=== PATIENT | male | born 1970 | race Caucasian/White ===

== ENCOUNTER 2017-10-29 13:18 | Emergency (ER) | payer OTHER, SELFPAY ==
[2017-10-29] VITALS (7 sets, daily range): BP systolic 111–149; BP diastolic 81–98; PULSE 61–76; RESP 13–18; TEMP 36.6; O2SAT 94–99; BMI 33.7
--- NOTE | 2017-10-29 13:21 | RAD_ITS ---
STUDY: X-RAY - LEFT SHOULDER REASON FOR EXAM: Male, 47 years old. Fall on shoulder. TECHNIQUE: 2 view(s) of the shoulder. COMPARISON: None. FINDINGS: Is complete dislocation of the glenohumeral joint with anterior humeral head dislocation. Normal acromioclavicular joint. Normal acromion. Normal humeral head and visualized proximal humerus. The soft tissue structures are unremarkable. Normal visualized pulmonary apex. RAD/Shoulder min 2 Views IMPRESSION: Anterior shoulder dislocation with no evidence of definitive chip fracture. Electronically Signed: Abrahan Lott DO at 14:10 EDT , Service support ,
[2017-10-29] MEDS: Ondansetron 4 MG/2 ML Vial IV (13:32)
[2017-10-29] MEDS: Morphine 4 MG/ML Syringe IV (13:32)
--- NOTE | 2017-10-29 13:34 | ED.VIS.GEN ---
History of Present Illness Chief Complaint: Upper Extremity Injury Informant: Patient Onset: Today Context: Sudden Onset - Slipped on wet concrete while power washing, caught himself on outstretched left hand, sudden onset severe left shoulder pain. Quality: Throbbing/aching Location: Left shoulder Current Severity: Severe Maximum Severity: Severe Worsened by: Trying to move left upper extremity Relieved by: Remaining still Associated Symptoms: Tingling in all of left fingers Narrative: Right-hand dominant. History of rotator cuff surgery left shoulder. No prior dislocation. No other injury today. - Past Medical History (1) Allergic rhinitis Status: Chronic Past Medical History - Allergies and Home Meds Allergies/Adverse Reactions: Allergies No Known Allergies Allergy (Verified 10/29/17 13:26) Home Medications: Home Medications Medication Instructions Recorded Cetirizine HCl [Zyrtec] 10 mg PO DAILY 07/04/14 Multivitamins,Therapeutic 1 tablet PO DAILY 07/04/14 [Multivitamin] Oxycodone HCl/Acetaminophen 1 tab PO Q6H PRN PRN 3 Days #12 tab 10/29/17 [Percocet 5/325] Primary Care Physician: Geoff New MD [Primary Care Provider] - Surgical History: rotator cuff repair Lives: Spouse/ Significant Other Smoking Status: Never smoker Review of Systems All systems negative except as indicated Musculoskeletal: Reports: Extremity Pain Neurological: Reports: Parasthesia Physical Exam Vital Signs/Narrative: Vital Signs Temp Pulse Resp BP Pulse Ox 10/29/17 13:19 97.9 F 68 18 141/97 H 98 Inital Vital Signs reviewed: Yes General: Well nourished, Well developed Head: Normocephalic, Atraumatic Eyes: Perrl, EOMI ENT: Moist mucous membranes, No rhinorrhea Neck: Supple, Nontender Cardiovascular: - - Normal 2+/4 bilateral radial pulses Extremities: Tenderness - With deformity consistent with anterior shoulder dislocation left subacromial. No AC joint tenderness or scapular tenderness. Very limited range of motion left upper extremity. No tenderness at humerus, elbow, forearm, wrist, hand. Skin: Normal color, No rash, - - Left upper extremity skin intact. Minor abrasion left lower leg. Neurological: Alert, Oriented x3, Cranial nerves II-XII grossly intact, Normal Strength, Normal Gait. Negative for: Normal Sensation - Mild diffuse left hand decreased sensation. Decreased subjective sensation left axillary nerve distribution. Psychological: Normal affect Diagnostic/Tx/Re-eval Clinical Impression(s) from Imaging Studies Shoulder X-Ray 10/29/17 13:21 IMPRESSION: Anterior shoulder dislocation with no evidence of definitive chip fracture. Electronically Signed: Abrahan Lott at 14:10 EDT , Service support , - Medical Decision Making Patient was initially given morphine for pain, but it does not help significantly and he was in extraordinary pain. He had been n.p.o. for approximately 5.5-6 hours. He consented to procedural sedation with close reduction, which was performed uneventfully, see procedure note. Upon waking up, he said his shoulder felt much better and the fullness in the subacromial area was resolved. Postreduction x-rays confirmed good reduction with no signs of any bony acute abnormality. He is neurovascularly intact distally after reduction. His paresthesias in axillary nerve distribution are improved but still present. He is placed in a sling and swath. His orthopedic doctor is Dr. Bonilla Ch, with whom he will follow-up, in [place]. Procedures Procedure(s): Left anterior shoulder dislocation reduction--traction-countertraction technique used with success, confirmed by post reduction films. Procedural sedation --fentanyl 100 mcg pretreatment, followed by propofol just under 1 mg/kg, transient hypoxia for about 5 seconds, otherwise tolerated well and no complications. Recovered uneventfully and feels much better. ED Disposition - Plan for ED Patient: Disposition: Home or Assisted Living Chief Complaint: Upper Extremity Injury Diagnosis: Closed anterior dislocation of left shoulder Instructions: ED Dislocation Shoulder Redu Prescriptions: Oxycodone HCl/Acetaminophen [Percocet 5/325] 1 tab PO Q6H PRN PRN 3 Days #12 tab PRN Reason: Pain Referrals: Geoff New MD [Primary Care Provider] - Bonilla Ch MD [NON-STAFF] - (Within the next week-call for appointment)
--- NOTE | 2017-10-29 13:37 | ED.DCSUM_ITS ---
History of Present Illness Chief Complaint: Upper Extremity Injury Informant: Patient Onset: Today Context: Sudden Onset - Slipped on wet concrete while power washing, caught himself on outstretched left hand, sudden onset severe left shoulder pain. Quality: Throbbing/aching Location: Left shoulder Current Severity: Severe Maximum Severity: Severe Worsened by: Trying to move left upper extremity Relieved by: Remaining still Associated Symptoms: Tingling in all of left fingers Narrative: Right-hand dominant. History of rotator cuff surgery left shoulder. No prior dislocation. No other injury today. - Past Medical History (1) Allergic rhinitis Status: Chronic Past Medical History - Allergies and Home Meds Allergies/Adverse Reactions: Allergies No Known Allergies Allergy (Verified 10/29/17 13:26) Home Medications: Home Medications Medication Instructions Recorded Cetirizine HCl [Zyrtec] 10 mg PO DAILY 07/04/14 Multivitamins,Therapeutic 1 tablet PO DAILY 07/04/14 [Multivitamin] Oxycodone HCl/Acetaminophen 1 tab PO Q6H PRN PRN 3 Days #12 tab 10/29/17 [Percocet 5/325] Primary Care Physician: Geoff New MD [Primary Care Provider] - Surgical History: rotator cuff repair Lives: Spouse/ Significant Other Smoking Status: Never smoker Review of Systems All systems negative except as indicated Musculoskeletal: Reports: Extremity Pain Neurological: Reports: Parasthesia Physical Exam Vital Signs/Narrative: Vital Signs Temp Pulse Resp BP Pulse Ox 10/29/17 13:19 97.9 F 68 18 141/97 H 98 Inital Vital Signs reviewed: Yes General: Well nourished, Well developed Head: Normocephalic, Atraumatic Eyes: Perrl, EOMI ENT: Moist mucous membranes, No rhinorrhea Neck: Supple, Nontender Cardiovascular: - - Normal 2+/4 bilateral radial pulses Extremities: Tenderness - With deformity consistent with anterior shoulder dislocation left subacromial. No AC joint tenderness or scapular tenderness. Very limited range of motion left upper extremity. No tenderness at humerus, elbow, forearm, wrist, hand. Skin: Normal color, No rash, - - Left upper extremity skin intact. Minor abrasion left lower leg. Neurological: Alert, Oriented x3, Cranial nerves II-XII grossly intact, Normal Strength, Normal Gait. Negative for: Normal Sensation - Mild diffuse left hand decreased sensation. Decreased subjective sensation left axillary nerve distribution. Psychological: Normal affect Diagnostic/Tx/Re-eval Clinical Impression(s) from Imaging Studies Shoulder X-Ray 10/29/17 13:21 IMPRESSION: Anterior shoulder dislocation with no evidence of definitive chip fracture. Electronically Signed: Abrahan Lott at 14:10 EDT , Service support , - Medical Decision Making Patient was initially given morphine for pain, but it does not help significantly and he was in extraordinary pain. He had been n.p.o. for approximately 5.5-6 hours. He consented to procedural sedation with close reduction, which was performed uneventfully, see procedure note. Upon waking up , he said his shoulder felt much better and the fullness in the subacromial area was resolved. Postreduction x-rays confirmed good reduction with no signs of any bony acute abnormality. He is neurovascularly intact distally after reduction. His paresthesias in axillary nerve distribution are improved but still present. He is placed in a sling and swath. His orthopedic doctor is Dr. Bonilla Ch, with whom he will follow-up, in [place]. Procedures Procedure(s): Left anterior shoulder dislocation reduction--traction- countertraction technique used with success, confirmed by post reduction films. Procedural sedation --fentanyl 100 mcg pretreatment, followed by propofol just under 1 mg/kg, transient hypoxia for about 5 seconds, otherwise tolerated well and no complications. Recovered uneventfully and feels much better. ED Disposition - Plan for ED Patient: Disposition: Home or Assisted Living Chief Complaint: Upper Extremity Injury Diagnosis: Closed anterior dislocation of left shoulder Instructions: ED Dislocation Shoulder Redu Prescriptions: Oxycodone HCl/Acetaminophen [Percocet 5/325] 1 tab PO Q6H PRN PRN 3 Days #12 tab PRN Reason: Pain Referrals: Geoff New MD [Primary Care Provider] - Bonilla Ch MD [NON-STAFF] - (Within the next week-call for appointment)
[2017-10-29] MEDS: fentaNYL 100 MCG/2 ML Ampul IV (14:36)
[2017-10-29] MEDS: Propofol 200 MG/20 ML Vial 100 MG IV BOLUS (14:48)
--- NOTE | 2017-10-29 14:53 | RAD_ITS ---
STUDY: X-RAY - LEFT SHOULDER REASON FOR EXAM: Male, 47 years old. Post reduction. TECHNIQUE: 2 view(s) of the shoulder. COMPARISON: None. FINDINGS: There is moderate degenerative arthrosis of the glenohumeral articulation. There is degenerative arthrosis of the acromioclavicular joint without inferior osseous spur formation. Normal acromion. There is an enthesopathic erosion of the humeral head. The soft tissue structures are unremarkable. Normal visualized pulmonary apex. RAD/Shoulder min 2 Views IMPRESSION: Successful post reduction with severe degenerative changes of the humeral head. Electronically Signed: Abrahan Lott DO at 15:19 EDT , Service support ,
== END 2017-10-29 15:40 | disposition home or self-care (01) ==
PROVIDERS: Emergency Provider Emergency Medicine; Family Provider Family Medicine; PCP Family Medicine
DX: S43.005A Unspecified dislocation of left shoulder joint, initial encounter (principal); W01.0XXA Fall on same level from slipping, tripping and stumbling without subsequent striking against object, initial encounter; Y93.H9 Activity, other involving exterior property and land maintenance, building and construction; Y92.009 Unspecified place in unspecified non-institutional (private) residence as the place of occurrence of the external cause; Y99.9 Unspecified external cause status; J30.9 Allergic rhinitis, unspecified
CPT/HCPCS: 23650; 73030; 99283; J7030; J7040; A4216; J2405

== ENCOUNTER 2017-11-06 07:17 | Emergency (ER) | payer OTHER, SELFPAY ==
--- NOTE | 2017-11-06 07:17 | DT_ITS ---
This patient was seen during an EMR downtime November 06, 2017 - November 13, 2017. This patient may have a combination of paper and electronic documentation or all paper documentation. All documentation is viewable within the e-chart portion of [facility] for each patient visit.
--- NOTE | 2017-11-06 08:15 | RAD_ITS ---
STUDY: X-RAY - LEFT SHOULDER REASON FOR EXAM: Male, 47 years old. dislocation. TECHNIQUE: 3 view(s) of the shoulder. COMPARISON: None. FINDINGS: There is anterior dislocation. Normal visualized pulmonary apex. RAD/Shoulder min 2 Views IMPRESSION: Anterior dislocation. Electronically Signed: Anh Tyson MD at 12:50 EDT Tel , Service support ,
--- NOTE | 2017-11-06 08:55 | RAD_ITS ---
STUDY: X-RAY - LEFT SHOULDER REASON FOR EXAM: Male, 47 years old. POST REDUCTION LEFT SHOULDER TECHNIQUE: 2 view(s) of the shoulder. COMPARISON: November 06, 2017 FINDINGS: There has been interval reduction. RAD/Shoulder min 2 Views IMPRESSION: Interval reduction. Electronically Signed: nAh Tyson MD at 10:51 EDT Tel , Service support ,
--- NOTE | 2017-12-05 06:07 | ED.VISSUMM ---
- ER Visit Summary Date of Service: 12/05/17 Chief Complaint: Dislocated left shoulder History of Present Illness: The patient is a 47 M history of prior left shoulder surgery secondary to a rotator cuff repair. About 06 30 today patient dislocated his shoulder. Denies any significant trauma. No other injuries. Complaining of pain. Physical Examination: Middle-aged male vital signs are stable afebrile. HEENT exam normal. Neck nontender. Lungs clear to auscultation. Heart regular rhythm no murmur. Abdomen soft nontender. Extremities are unremarkable except left shoulder has obvious deformity consistent with a dislocation. Distally the left hand is neurovascular intact with a strong radial pulse. 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 Test Results: Left shoulder x-ray 2 views show an obvious shoulder dislocation. No fracture. Emergency Department Course and Treatment: Procedure note: Patient initially given IV Dilaudid for pain and Zofran to prevent nausea. Was consciously sedated with propofol. Initially 60 mg and a second dose of 40 mg for a total of 100 mg. Using traction countertraction the shoulder was easily reduced. He was placed in a sling and swath. Post reduction x-ray revealed good positioning. No fracture. Treatment Plan: Discharged home. Follow-up with orthopedic doctor. Disposition: Discharge Impression: Acute left shoulder dislocation. Conscious sedation by ER Manual left shoulder dislocation reduction by ER This dictation was done on 12/05/2017 and 06 10 AM. Patient was initially seen on 11/06/2017. The dictation was done after the fact due to this being the hospital downtime on initial evaluation. This note was generated with [employer] dictation software. It may contain incorrect words, spelling, and punctuation that were not noted in review of the chart prior to signing ED Disposition - Plan for ED Patient: Disposition: Home or Assisted Living Referrals: Geoff New MD [Primary Care Provider] -
--- NOTE | 2017-12-05 06:11 | ED.DCSUM_ITS ---
- ER Visit Summary Date of Service: 12/05/17 Chief Complaint: Dislocated left shoulder History of Present Illness: The patient is a 47 M history of prior left shoulder surgery secondary to a rotator cuff repair. About 06 30 today patient dislocated his shoulder. Denies any significant trauma. No other injuries. Complaining of pain. Physical Examination: Middle-aged male vital signs are stable afebrile. HEENT exam normal. Neck nontender. Lungs clear to auscultation. Heart regular rhythm no murmur. Abdomen soft nontender. Extremities are unremarkable except left shoulder has obvious deformity consistent with a dislocation. Distally the left hand is neurovascular intact with a strong radial pulse. 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 Test Results: Left shoulder x-ray 2 views show an obvious shoulder dislocation. No fracture. Emergency Department Course and Treatment: Procedure note: Patient initially given IV Dilaudid for pain and Zofran to prevent nausea. Was consciously sedated with propofol. Initially 60 mg and a second dose of 40 mg for a total of 100 mg. Using traction countertraction the shoulder was easily reduced. He was placed in a sling and swath. Post reduction x-ray revealed good positioning. No fracture. Treatment Plan: Discharged home. Follow-up with orthopedic doctor. Disposition: Discharge Impression: Acute left shoulder dislocation. Conscious sedation by ER Manual left shoulder dislocation reduction by ER This dictation was done on 12/05/2017 and 06 10 AM. Patient was initially seen on 11/06/2017. The dictation was done after the fact due to this being the hospital downtime on initial evaluation. This note was generated with [employer] dictation software. It may contain incorrect words, spelling, and punctuation that were not noted in review of the chart prior to signing ED Disposition - Plan for ED Patient: Disposition: Home or Assisted Living Referrals: Geoff New MD [Primary Care Provider] -
== END 2017-11-06 09:30 | disposition home or self-care (01) ==
LOC: ED 11-08 11:44
PROVIDERS: Emergency Provider Emergency Medicine; Family Provider Family Medicine; PCP Family Medicine
DX: S43.005A Unspecified dislocation of left shoulder joint, initial encounter (principal); X58.XXXA Exposure to other specified factors, initial encounter; Y93.89 Activity, other specified; Y92.9 Unspecified place or not applicable; Y99.9 Unspecified external cause status
CPT/HCPCS: 23650; 73030; 96374; 96375; 99143; 99285; J7030; A4216; J2405

== ENCOUNTER → 2017-12-01 10:24 | Outpatient (CLI) | payer OTHER, SELFPAY ==
--- NOTE | 2017-12-01 10:29 | MRI_ITS ---
STUDY: MRI LEFT SHOULDER REASON FOR EXAM: Male, 47 years old. Dislocation. Prior surgery. TECHNIQUE: Standardized fat and water weighted pulse sequences were obtained in all 3 orthogonal planes. COMPARISON: February 20, 2015. FINDINGS: There is postoperative change with tracks from hardware and susceptibility artifact of the posterior lateral humeral head and the proximal shaft of the humerus. Tendinosis of the supraspinatus with attrition. There is full-thickness tear of the distal supraspinatus tendon with retraction of 2.6 cm, series 5 image 05/24 through . There is infraspinatus tendinosis with tendon attrition, but without a demonstrated infraspinatus tendon tear. Normal subscapularis tendon. Normal teres minor tendon. There is moderate muscular atrophy of the supraspinatus muscle. There is moderate muscular atrophy of the infraspinatus muscle. Normal subscapularis muscle. Normal teres minor muscle. Normal glenohumeral articulation. There is a Hill-Sachs deformity of the posterior superior humeral head. Normal biceps labral complex. Nonvisualized long head of the biceps tendon consistent with previous tenodesis . There is labral degeneration with blunting of the hardy, but there is no demonstrated discrete labral tear. Normal capsulo- ligamentous complex. Normal rotator interval. There is mild osteoarthritis of the acromioclavicular articulation. There is a Type II morphology (curved), with a neutral orientation. There is no subacromial-subdeltoid bursal fluid. Normal visualized coracohumeral and coracoacromial ligaments. Normal quadrilateral space. Normal axillary space. Normal deltoid muscle. Normal trapezius muscle. MRI/Upper Ext Joint Only(Routine) IMPRESSION: Postoperative change. Rotator cuff tear of the supraspinatus tendon. Electronically Signed: Andrés Burns MD at 14:20 EDT , Service support ,
== END ==
PROVIDERS: Family Provider Family Medicine; PCP Family Medicine; Visit Provider Family Medicine
DX: S43.016A Anterior dislocation of unspecified humerus, initial encounter (principal)
CPT/HCPCS: 73221

== ENCOUNTER 2018-04-10 03:55 | Emergency (ER) | payer OTHER, SELFPAY ==
[2018-04-10 03:56] VITALS: BP 136/97; PULSE 62; RESP 24; TEMP 36.5; O2SAT 98; BMI 33.2
--- NOTE | 2018-04-10 04:01 | RAD_ITS ---
STUDY: X-RAY - LEFT SHOULDER REASON FOR EXAM: Male, 48 years old. Shoulder dislocation TECHNIQUE: 2 view(s) of the shoulder. COMPARISON: None. FINDINGS: There are mild degenerative changes of the acromioclavicular joint and the glenohumeral articulation. 2 microplates are seen projecting over the surgical neck of the humerus. The surrounding soft tissues are normal. There is no fracture or dislocation. IMPRESSION: No acute fracture or dislocation. (The patient apparently had dislocated shoulder by the images were obtained after the reduction.) Electronically Signed: Mendez Lopez MD at 4:24 EST Tel , Service support , RAD/Shoulder min 2 Views
--- NOTE | 2018-04-10 04:09 | ED.VISSUMM ---
- ER Visit Summary Date of Service: 04/10/18 Chief Complaint: Left shoulder dislocation History of Present Illness: The patient is a 48 M presenting for evaluation secondary to a left shoulder dislocation. Patient reports that he rolled over in bed and dislocated his left shoulder. Patient states that this is the third time that this happened. Patient states that he has a rotator cuff injury and is scheduled for surgery in 2 weeks. Patient denies any other injuries at this time. Physical Examination: Physical exam unremarkable except for examination of the left upper extremity. There is obvious anterior dislocation of the left shoulder with an easily palpable glenoid fossa. 2+ radial pulses. Normal range of motion of the fingers and hand. Test Results: Left shoulder x-ray by my personal interpretation shows successful reduction Emergency Department Course and Treatment: Patient presented secondary to a shoulder dislocation. Patient has had multiple dislocations, so I believe that the patient can be reduced without sedation. Patient was left upright in the bed, inferior traction was placed on the patient's left shoulder, and I forcibly massaged the patient's bicep muscle and slowly externally rotated his shoulder. He did reduce. This was confirmed by x-ray. Patient was given [place] in the emergency department, and will be discharged in his sling. Disposition: Discharge Impression: 1. Left shoulder dislocation 2. Closed reduction of the left shoulder by ED physician This note was generated with [employer] dictation software. It may contain incorrect words, spelling, and punctuation that were not noted in review of the chart prior to signing ED Disposition - Plan for ED Patient: Disposition: Home or Assisted Living Chief Complaint: Upper Extremity Injury Diagnosis: Recurrent dislocation, left shoulder Instructions: ED Dislocation Shoulder Redu Referrals: Bonilla Ch MD [NON-STAFF] -
[2018-04-10] MEDS: HYDROcodone Bitartrate/Apap 5/325 Tablet PO (04:17)
[2018-04-10 04:20] VITALS: BP 123/75; PULSE 68; RESP 14; O2SAT 99
== END 2018-04-10 04:52 | disposition home or self-care (01) ==
PROVIDERS: Emergency Provider Emergency Medicine; Family Provider Family Medicine; PCP Family Medicine
DX: M24.412 Recurrent dislocation, left shoulder (principal)
CPT/HCPCS: 23650; 73030; 99284

== ENCOUNTER → 2018-07-30 17:26 | Outpatient (CLI) | payer OTHER, SELFPAY ==
--- NOTE | 2018-07-30 17:30 | RAD_ITS ---
STUDY: X-RAY - LUMBAR SPINE REASON FOR EXAM: Male, 48 years old. Back pain. TECHNIQUE: 5 view(s) of the lumbar spine were obtained. COMPARISON: None FINDINGS: Convex right lumbar curvature. No fracture or subluxation. Disc space narrowing with marginal osteophytes L3-L4 through L5-S1. Soft tissues unremarkable. RAD/L/S Spine Min 4 Views IMPRESSION: Multilevel degenerative changes of the mid and lower lumbar spine. Electronically Signed: Duy Dunbra MD at 5:52 EST , Service support ,
== END ==
PROVIDERS: Family Provider Family Medicine; PCP Family Medicine; Referring Provider Family Medicine; Visit Provider Family Medicine
DX: M54.16 Radiculopathy, lumbar region (principal)
CPT/HCPCS: 72110

== ENCOUNTER → 2018-09-03 09:17 | Outpatient (CLI) | payer OTHER, SELFPAY ==
--- NOTE | 2018-09-03 09:22 | RAD_ITS ---
STUDY: X-RAY - RIGHT SHOULDER REASON FOR EXAM: Right shoulder pain. TECHNIQUE: 4 view(s) of the shoulder. COMPARISON: None. FINDINGS: Normal glenohumeral articulation. There is acromioclavicular arthrosis. Normal acromion. Normal humeral head and visualized proximal humerus. The soft tissue structures are unremarkable. Normal visualized pulmonary apex. RAD/Shoulder min 2 Views IMPRESSION: Acromioclavicular arthrosis. Electronically Signed: Noe Herrera MD at 10:50 EDT Tel , Service support ,
== END ==
PROVIDERS: Family Provider Family Medicine; PCP Family Medicine; Referring Provider Family Medicine; Visit Provider Family Medicine
DX: M25.519 Pain in unspecified shoulder (principal)
CPT/HCPCS: 73030

== ENCOUNTER 2018-10-22 10:30 | Outpatient (RCR) | payer OTHER, SELFPAY ==
--- NOTE | 2018-05-15 17:02 | HP.PTEVAL ---
Patient's Visit Information ALIDA VILLAGRAN is a 48 year old M referred to Physical Therapy by Bonilla Ch MD with a diagnosis of TEAR OF LEFT ROTATOR CUFF UNSPECIFIED TEAR. Date of Evaluation: 05/15/18 Physical Therapist: Alida Wagner PT, - Visit Plan Frequency: 2x /Week Duration: 12 WEEKS Plan: PATIENT UNDERWENT S/P RTC SUPRASPINATOUS MEDIEM TEAR 04/25/18. SEE GUIDELINES/PROTOCAL WITH MEDIUM TEAR PHASE PROM 1 :4-6 WEEKS ,AAROM PHASE 2:4-6WEEK,PHASE 3 STRENGTHENING RTC/SCAPULAR,POSTURAL,MANUAL THERAPY. PRECAUTION PATIENT HAD DISLOCATED SHOULDER 3X PRIOR TO SURGERY. ALSO KRUPA HAS H/O RTC 2014 - Subjective Findings: This 48 y/o male presents to physical therapy with tear of left rotator cuff. Patient underwent s/p repair of left RTC on 04/25/[address] Ch at [facility] .Patient d/c with sling seen DR last week recommended PT and see end of Month in May. Patient intially tore RTC powerwashing side walk fell on out stretched arm into extension. Patient had MRI showed medium tear of supraspinatous. Patient also had his shoulder dislocated x3 prior to surgery . Patient also had h/o prior RTC repair OCTOBER 2014.Patient denies parathesia/tingling. Pain does affect sleeping.Patient surgery has affected QOL and return to work . SOCIAL: . VOCATION: [employer] - Pain Left Shoulder Pain Intensity (Out of 10): 2 Pain Intensity Range: 10 - Objective POSTURE: mild foward posture,sling intact. INSCION: well approximate. NEURO: intact. PROM: shoulder flexion 150 degrees,abduction 150 degrees ,ER 70 degrees ,IR able to touch ABDOMINAL. AROM: elbow wrist WFL. MMT: NT - Goals Goal 1:: Independant with HEP for RTC Goal Time Frame: 12-16 Weeks Goal 2:: Patient to improve AROM shoulder flexion /abduction 150 degrees ,ER 80 degrees to improve function with ADL'S. Goal Time Frame: 12-16 Weeks Goal 3:: Patient to improve strength RTC 4/5 supraspinatous 4-/5,deltoid 4-/5 to improve function. Goal Time Frame: 12-16 Weeks Goal 4:: Patient be able to perform ADL'S and function above 90 degrees for work with min limitation. Goal Time Frame: 12-16 Weeks Goal 5:: Patient to improve DASH shoulder score by 15-20 points or greater to improve QOL - Rehabilitation Potential Physical Therapy Diagnosis: Patient underwent s/p RTC medium tear of suprspinatous with decrease ROM ,strength which impairs ADL'S and return to work /housework tasks Rehabilitation Potential: Good - Anticipated Interventions Patient/Client Instruction: Educate patient on: Condition, Plan of Care For the Purpose of:: To decrease pain, To increase ROM, To improve muscle performance and motor function, To increase tolerance to activity/condition/position, To improve performance and independence with ADL's, To improve ability of physical actions for home/community/work/leisure, To improve health of tissue, To decrease soft tissue restriction, To increase flexibility/ROM, To improve ability to perform tasks related to life management Therapeutic Exercise to Include: Strength training, Postural training, Flexibilty training, Passive ROM, Active ROM, Scapular Strength/Stabilization Comment: SEE BRENDA KWONG PHASE 1 PROM,PHASE 2 AAROM,PHASE 3 STRENGTH For the Purpose of:: To decrease pain, To increase ROM, To improve muscle performance and motor function, To improve ability to perform ADL's, To increase tolerance to activity/condition/position, To improve performance and independence with ADL's, To improve ability of physical actions for home/community/work/leisure, To improve health of tissue, To decrease soft tissue restriction, To increase flexibility/ROM, To improve ability to perform tasks related to life management TENS: Yes IF ES: Yes Thermo therapy (hot pack): Yes Ultrasound (thermal/non thermal): Yes For the Purpose of:: To decrease pain, To improve nutrient delivery to tissue, To increase oxygenation perfusion, To improve health of tissue, To decrease soft tissue restriction Thank you for the opportunity to evaluate your patient. For Medicare and Medicare HMO plans, please review the plan of care and approve it. It will need to be FAXED BACK to us at [phone] for Medicare purposes. For Medicare only, by signing this I certify the plan of care. Please let me know if there are questions or concerns regarding this plan of care. Physician Signature: Date:
--- NOTE | 2018-05-16 08:23 | HP.PTEVAL ---
Patient's Visit Information ALIDA VILLAGRAN is a 48 year old M referred to Physical Therapy by Bonilla Ch MD with a diagnosis of TEAR OF LEFT ROTATOR CUFF UNSPECIFIED TEAR. Date of Evaluation: 05/15/18 Physical Therapist: Alida Wagner PT, - Visit Plan Frequency: 2x /Week Duration: 12 WEEKS Plan: PATIENT UNDERWENT S/P RTC SUPRASPINATOUS WITH SUBACROMIAL DECOMPRESSION MEDIEM TEAR 04/25/18. SEE GUIDELINES/PROTOCAL WITH MEDIUM TEAR PHASE PROM 1 :4 WEEKS ,AAROM PHASE 2:4-8 WEEK,PHASE 3: 8-12 WEEKS STRENGTHENING RTC/SCAPULAR,POSTURAL,MANUAL THERAPY. PRECAUTION PATIENT HAD DISLOCATED SHOULDER 3X PRIOR TO SURGERY. ALSO PATINET HAS H/O RTC 2014 - Subjective Findings: This 48 y/o male presents to physical therapy with tear of left rotator cuff. Patient underwent s/p repair of left RTC and subaromial decompression on 04/25/[address] Ch at [facility] .Patient d/c with sling seen DR last week recommended PT and see end of Month in May. Patient intially tore RTC powerwashing side walk fell on out stretched arm into extension. Patient had MRI showed medium tear of supraspinatous. Patient also had his shoulder dislocated x3 prior to surgery . Patient also had h/o prior RTC repair OCTOBER 2014.Patient denies parathesia/tingling. Pain does affect sleeping.Patient surgery has affected QOL and return to work . SOCIAL: . VOCATION: [employer] - Pain Left Shoulder Pain Intensity (Out of 10): 2 Pain Intensity Range: 10 - Objective POSTURE: mild foward posture,sling intact. INSCION: well approximate. NEURO: intact. PROM: shoulder flexion 150 degrees,abduction 150 degrees ,ER 70 degrees ,IR able to touch ABDOMINAL. AROM: elbow wrist WFL. MMT: NT - Goals Goal 1:: Independant with HEP for RTC Goal Time Frame: 12-16 Weeks Goal 2:: Patient to improve AROM shoulder flexion /abduction 150 degrees ,ER 80 degrees to improve function with ADL'S. Goal Time Frame: 12-16 Weeks Goal 3:: Patient to improve strength RTC 4/5 supraspinatous 4-/5,deltoid 4-/5 to improve function. Goal Time Frame: 12-16 Weeks Goal 4:: Patient be able to perform ADL'S and function above 90 degrees for work with min limitation. Goal Time Frame: 12-16 Weeks Goal 5:: Patient to improve DASH shoulder score by 15-20 points or greater to improve QOL - Rehabilitation Potential Physical Therapy Diagnosis: Patient underwent s/p RTC medium tear of suprspinatous with decrease ROM ,strength which impairs ADL'S and return to work /housework tasks Rehabilitation Potential: Good - Anticipated Interventions Patient/Client Instruction: Educate patient on: Condition, Plan of Care For the Purpose of:: To decrease pain, To increase ROM, To improve muscle performance and motor function, To increase tolerance to activity/condition/position, To improve performance and independence with ADL's, To improve ability of physical actions for home/community/work/leisure, To improve health of tissue, To decrease soft tissue restriction, To increase flexibility/ROM, To improve ability to perform tasks related to life management Therapeutic Exercise to Include: Strength training, Postural training, Flexibilty training, Passive ROM, Active ROM, Scapular Strength/Stabilization Comment: SEE BRENDA KWONG PHASE 1 PROM,PHASE 2 AAROM,PHASE 3 STRENGTH For the Purpose of:: To decrease pain, To increase ROM, To improve muscle performance and motor function, To improve ability to perform ADL's, To increase tolerance to activity/condition/position, To improve performance and independence with ADL's, To improve ability of physical actions for home/community/work/leisure, To improve health of tissue, To decrease soft tissue restriction, To increase flexibility/ROM, To improve ability to perform tasks related to life management TENS: Yes IF ES: Yes Thermo therapy (hot pack): Yes Ultrasound (thermal/non thermal): Yes For the Purpose of:: To decrease pain, To improve nutrient delivery to tissue, To increase oxygenation perfusion, To improve health of tissue, To decrease soft tissue restriction Thank you for the opportunity to evaluate your patient. For Medicare and Medicare HMO plans, please review the plan of care and approve it. It will need to be FAXED BACK to us at [phone] for Medicare purposes. For Medicare only, by signing this I certify the plan of care. Please let me know if there are questions or concerns regarding this plan of care. Physician Signature: Date:
--- NOTE | 2018-08-02 14:51 | HP.PTEVAL_ITS ---
Patient's Visit Information ALIDA VILLAGRAN is a 48 year old M referred to Physical Therapy by Bonilla Ch MD with a diagnosis of TEAR OF LEFT ROTATOR CUFF UNSPECIFIED TEAR. Date of Evaluation: 05/15/18 Physical Therapist: Alida Wagner PT, Cert MDT, OCS - Visit Plan Frequency: 2x /Week Duration: 4 Weeks Plan: Progress as indicated in plan of care. - Subjective Findings: This 48 y/o male presents to physical therapy with tear of left rotator cuff. Patient underwent s/p repair of left RTC and subaromial decompression on 04/25/[address] Ch at [facility] .Patient d/c with sling seen DR last week recommended PT and see end of Month in May. Patient intially tore RTC powerwashing side walk fell on out stretched arm into extension. Patient had MRI showed medium tear of supraspinatous. Patient also had his shoulder dislocated x3 prior to surgery . Patient also had h/o prior RTC repair OCTOBER 2014.Patient denies parathesia/tingling. Pain does affect sleeping.Patient surgery has affected QOL and return to work . SOCIAL: . VOCATION: [employer] - Pain Left Shoulder Pain Intensity (Out of 10): 0 Pain Intensity Range: 10 - Objective POSTURE: mild foward posture,sling intact. INSCION: well approximate. NEURO: intact. PROM: shoulder flexion 150 degrees,abduction 150 degrees ,ER 70 degrees ,IR able to touch ABDOMINAL. AROM: elbow wrist WFL. MMT: NT - Goals Goal 1:: Independant with HEP for RTC Goal Time Frame: 12-16 Weeks Goal 2:: Patient to improve AROM shoulder flexion /abduction 150 degrees ,ER 80 degrees to improve function with ADL'S. Goal Time Frame: 12-16 Weeks Goal 3:: Patient to improve strength RTC 4/5 supraspinatous 4-/5,deltoid 4-/5 to improve function. Goal Time Frame: 12-16 Weeks Goal 4:: Patient be able to perform ADL'S and function above 90 degrees for work with min limitation. Goal Time Frame: 12-16 Weeks Goal 5:: Patient to improve DASH shoulder score by 15-20 points or greater to improve QOL - Rehabilitation Potential Physical Therapy Diagnosis: Patient underwent s/p RTC medium tear of suprspinatous with decrease ROM ,strength which impairs ADL'S and return to work /housework tasks Rehabilitation Potential: Good - Anticipated Interventions Patient/Client Instruction: Educate patient on: Condition, Plan of Care For the Purpose of:: To decrease pain, To increase ROM, To improve muscle performance and motor function, To increase tolerance to activity/condition/position, To improve performance and independence with ADL's, To improve ability of physical actions for home/community/work/leisure, To improve health of tissue, To decrease soft tissue restriction, To increase flexibility/ROM, To improve ability to perform tasks related to life management Therapeutic Exercise to Include: Strength training, Postural training, Flexibilty training, Passive ROM, Active ROM, Scapular Strength/Stabilization Comment: SEE BRENDA KWONG PHASE 1 PROM,PHASE 2 AAROM,PHASE 3 STRENGTH For the Purpose of:: To decrease pain, To increase ROM, To improve muscle performance and motor function, To improve ability to perform ADL's, To increase tolerance to activity/condition/position, To improve performance and independence with ADL's, To improve ability of physical actions for home/community/work/leisure, To improve health of tissue, To decrease soft tissue restriction, To increase flexibility/ROM, To improve ability to perform tasks related to life management TENS: Yes IF ES: Yes Thermo therapy (hot pack): Yes Ultrasound (thermal/non thermal): Yes For the Purpose of:: To decrease pain, To improve nutrient delivery to tissue, To increase oxygenation perfusion, To improve health of tissue, To decrease soft tissue restriction Thank you for the opportunity to evaluate your patient. For Medicare and Medicare HMO plans, please review the plan of care and approve it. It will need to be FAXED BACK to us at [phone] for Medicare purposes. For Medicare only, by signing this I certify the plan of care. Please let me know if there are questions or concerns regarding this plan of care. Physician Signature: Date:
--- NOTE | 2018-08-03 15:45 | HP.PTEVAL2_ITS ---
Patient's Visit Information ALIDA VILLAGRAN is a 48 year old M referred to Physical Therapy by Bonilla Ch MD with a diagnosis of LUMBAR DDD. Date of Evaluation: 08/02/18 Physical Therapist: Alida Wagner, PT, Cert MDT, OCS - Visit Plan Frequency: 2x /Week Duration: 4 Weeks Plan: ATA EX'S,DLS PRORAM,POSTURAL EX'S MODALITIES NEEDEDED - Subjective Findings: This 48 y/o male presents to physical therapy with lumbar radiculopathy ride side. Patient symptoms been there for a month no predisposing factors possible inactivity/sitting. Seen Dr jabier arzate ,helped minimal. Did x-rays DDD. Location pain right L-S region buttuck ,lateral calf. Symptoms aggravating factors sitting ,driving,bending,lifting,walking,standing . Alleviated factors heat,lumbar support.C/O parathesia/tingling right leg. Pain a ffects sleeping. Coughing/sneezing +. Patient has h/o spasms.Symptoms worse distally. No prior PT in lumbar.Patient affects QOL and function/housework tasks. SOCAIL: . VOCATION: [employer] - Pain Right Back Intensity: 2 Pain Intensity Range: 10 Right Lower Extremity Intensity: 5 Pain Intensity Range: 10 - Objective Objective: POSTURE: mild foward posture. GAIT: normal niya. NEURO: c/o parathesia/tingling right leg,reflexes L3-4,L4-5,L5-S1-3/3. PALPATION: unremarkable. SYMMTRIES: align. MMT: quads/hams 4/5,hip flexion 4/5,ankle 4/5. LUMBAR ROM: flexion min loss,extension WFL,side glides min loss - Special Tests Slump test left side: Negative Slump test right side: Positive Left Straight Leg Raise: Negative Right Straight Leg Raise: Negative Flexion - Mechanical Response: No effect Flexion - Symptoms During Testing: Increases Flexion - Symptoms After Testing: No worse Extension - Mechanical Response: No effect Extension - Symptoms During Testing: Decreases Extension - Symptoms After Testing: Better Right Side Glides - Mechanical Response: No effect Right Side [place] - Symptoms During Testing: Increases Right Side [place] - Symptoms After Testing: No worse Left Side [place] - Mechanical Response: No effect Left Side [place] - Symptoms During Testing: Increases Left Side [place] - Symptoms After Testing: No worse Flexion - Mechanical Response: No effect Flexion - Symptoms During Testing: Increases Flexion - Symptoms After Testing: Worse Extension - Mechanical Response: No effect Extension - Symptoms During Testing: Decreases Extension - Symptoms After Testing: Better Comments:: DISTAL SYMPTOMS - Goals Goal 1:: Independant with HEP. Goal Time Frame: 4-6 Weeks Goal 2:: Independant with posture/body mechanics Goal Time Frame: 4-6 Weeks Goal 3:: Decrease lumbar radicular symptoms by 70% or greater to improve function. Goal Time Frame: 4-6 Weeks Goal 4:: Patient to increase lumbar ROM for function of recovery. Goal Time Frame: 4-6 Weeks Goal 5:: Patient to be d/c to prophalaxis Goal Time Frame: 4-6 Weeks Goal 6:: Patient to improve LATOYA back owestry score by 5 points. Goal Time Frame: 4-6 Weeks - Rehabilitation Potential Physical Therapy Diagnosis: This patient has derrangement below knee with aggravating factors with flexion ,sitting ,driving,bending,lifting and extended walkiing /standing respondes better with extension/posture. Rehabilitation Potential: Good - Anticipated Interventions Patient/Client Instruction: Educate patient on: Condition, Plan of Care For the Purpose of:: To decrease pain, To increase ROM, To improve muscle performance and motor function, To improve ability to perform ADL's, To increase tolerance to activity/condition/position, To improve gait and locomotor functions, To improve health of tissue, To decrease soft tissue restriction, To increase flexibility/ROM, To reduce risk of recurrence, To improve health and function, To improve ability to perform tasks related to life management Therapeutic Exercise to Include: Strength training, Postural training, Flexibilty training, Active ROM, Dynamic Lumbar Stabilization, Ata Exercises For the Purpose of:: To decrease pain, To increase ROM, To improve muscle performance and motor function, To increase tolerance to activity/condition/position, To improve ability of physical actions for home/community/work/leisure, To improve health of tissue, To decrease soft tissue restriction, To increase flexibility/ROM, To reduce risk of recurrence, To improve ability to perform tasks related to life management Manual Therapy Techniques to Include: Mobilization Comment: LUMBAR For the Purpose of:: To decrease pain, To increase ROM, To improve health of tissue, To decrease soft tissue restriction TENS: Yes IF ES: Yes Cryotherapy (ice pack, ice massage): Yes Thermo therapy (hot pack): Yes Ultrasound (thermal/non thermal): Yes For the Purpose of:: To decrease pain, To increase ROM, To improve nutrient delivery to tissue, To increase oxygenation perfusion, To improve health of tissue, To decrease soft tissue restriction Thank you for the opportunity to evaluate your patient. For Medicare and Medicare HMO plans, please review the plan of care and approve it. It will need to be FAXED BACK to us at [phone] for Medicare purposes. For Medicare only, by signing this I certify the plan of care. Please let me know if there are questions or concerns regarding this plan of care. Physician Signature: Date:
--- NOTE | 2018-09-05 13:02 | HP.PTEVAL3 ---
Patient's Visit Information ALIDA VILLAGRAN is a 48 year old M referred to Physical Therapy by Bonilla Ch MD with a diagnosis of RIGHT SHOULDER PAIN. Date of Evaluation: 09/05/18 Physical Therapist: Alida Wagner PT, Cert MDT, OCS - Visit Plan Frequency: 2x /Week Duration: 4 Weeks Plan: INTERVTIONS US/ESTIM/CP PROGRESS TO GRADE RTC/POSTURAL EX'S - Subjective Findings: This 48 y/o male presnets to physical for right shoulder pain for about year. Patient had injection in in mid summer . But recently tightening hose clamp cause more pain about 1month ago never got better. Most recently patient seen DR had x-rays and palns to do corizone today.Patient has had pervious tendonitis when younger. Patinet pain located in front of shoulder . Symptoms described dull ache ,popping/grinding with movement. Patient aggravating factors with [place] activties ,lifting to reach for something,WB ,sleeping on right side.Driving care. Symptoms affects sleeping. Patient has ocassionally parathesia . Patient right shoulder pain affects ADL'S,job demands ,and housework tasks. Patient condition affects QOL. SOCIAL: . 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 PALAPATION: long bicep tendon. NEURO: intact. AROM: flexion /abd 170 degrees ,ER 90 ,IR 80 degrees OP no pain. MMT: infraspinatous /supraspinatous 4-/5 pain,subscapularis 4/5 ,deltoid 4-/5 ,scapular 4-/5 - Special Tests External Rotation Lag Test - RC Tear: Negative Supine Impingement Test - RC Tear: Negative Empty Can - SS: Positive Neer - Impingement: Negative Sanchez Chaka - Impingement: Negative Biceps Load Test - Labrum: Negative Apprehension Test - Anterior Instability: Negative Speeds Test - Labrum/Biceps: Positive - Goals Goal 1:: Patient to be Independant with HEP. Goal Time Frame: 4-6 Weeks Goal 2:: Patient to decrease shoulder pain by 50% or greater to improve function and ADL'S Goal Time Frame: 2-4 Weeks Goal 3:: Patient increase strength right RTC /deltoid by 4/5 to improve function Goal Time Frame: 2-4 Weeks Goal 4:: Patient quick dash shoulder by 10 points or greater to improve QOL with right shoulder Goal Time Frame: 2-4 Weeks Goal 5:: Patient be able to peform ADL'S and housework tasks with min limitations with [place] activites . Goal Time Frame: 2-4 Weeks - Rehabilitation Potential Physical Therapy Diagnosis: This patient has possible right shoulder long head bicep tendonits with pain affect motion and strength with [place] activities impairs ADL'S and job demands thus benifit Rehabilitation Potential: Good - Anticipated Interventions Patient/Client Instruction: Educate patient on: Condition, Plan of Care For the Purpose of:: To decrease pain, To increase ROM, To improve muscle performance and motor function, To improve ability to perform ADL's, To increase tolerance to activity/condition/position, To improve ability of physical actions for home/community/work/leisure, To improve health of tissue, To decrease soft tissue restriction, To increase flexibility/ROM, To improve ability to perform tasks related to life management Therapeutic Exercise to Include: Strength training, Postural training, Flexibilty training, Active ROM For the Purpose of:: To decrease pain, To increase ROM, To improve muscle performance and motor function, To improve ability to perform ADL's, To improve ability of physical actions for home/community/work/leisure, To improve health of tissue, To decrease soft tissue restriction, To increase flexibility/ROM, To improve ability to perform tasks related to life management TENS: Yes IF ES: Yes Cryotherapy (ice pack, ice massage): Yes Ultrasound (thermal/non thermal): Yes For the Purpose of:: To decrease pain, To increase ROM, To improve nutrient delivery to tissue, To increase oxygenation perfusion, To improve health of tissue, To decrease soft tissue restriction Thank you for the opportunity to evaluate your patient. For Medicare and Medicare HMO plans, please review the plan of care and approve it. It will need to be FAXED BACK to us at [phone] for Medicare purposes. For Medicare only, by signing this I certify the plan of care. Please let me know if there are questions or concerns regarding this plan of care. Physician Signature: Date:
--- NOTE | 2018-09-05 13:14 | HP.PTDCSUM ---
HP - PT D/C Summary It has been my pleasure to treat ALIDA VILLAGRAN under orders from Bonilla Ch MD, for the diagnosis of TEAR OF LEFT ROTATOR CUFF UNSPECIFIED TEAR for a total of 28 visit(s). Discharge Date: 09/05/18 Please see the following information for a summary of their discharge status. - Subjective Subjective: Doing well ,back to normal with ADL'S and function.Job and ADL'S - Pain Left Shoulder Pain Intensity (Out of 10): 0 - Overall Improvement % Improvement: 100 - Objective Objective/Function: AROM: shoulder flexion 170 flexion/abduction,ER 90 ,IR 80 degrees. MMT: RTC 4/5 EXCEPT SUPRASPINATOUS 4-/5 ,DELTOID 4/5. WNL -functional tests - Goals Goal 1:: Independant with HEP for RTC Goal Progress: Goal Met Goal 2:: Patient to improve AROM shoulder flexion /abduction 150 degrees ,ER 80 degrees to improve function with ADL'S. Goal Progress: Goal Met Goal 3:: Patient to improve strength RTC 4/5 supraspinatous 4-/5,deltoid 4-/5 to improve function. Goal Progress: Goal Met Goal 4:: Patient be able to perform ADL'S and function above 90 degrees for work with min limitation. Goal Progress: Goal Met Goal 5:: Patient to improve DASH shoulder score by 15-20 points or greater to improve QOL Goal Progress: Goal Met - Plan Plan: D/C - D/C Information Discharge Comments: HEP If there are questions or concerns regarding this patient's physical therapy, please feel free to call me at [phone]. Thank you for the referral of this patient. Sincerely, Alida Wagner, PT, Cert MDT, OCS
--- NOTE | 2018-11-21 16:16 | HP.PTDCS(2) ---
HP - PT D/C Summary (2) It has been my pleasure to treat ALIDA VILLAGRAN under orders from Bonilla Ch MD, for the diagnosis of LUMBAR DDD for a total of 4 visit(s). Discharge Date: Please see the following information for a summary of their discharge status. - Subjective Subjective: No back pain except when sitting bending - Overall Improvement % Improvement: 90 - Objective Objective/Function/Assessment: Arnoldo tx well with lumbar spine no pain as well for function of recovery - Goals Patient Goals: Improve Mobility, Improve Function, Decrease Pain, Alleviate Pain, Walk Normal, Improve ROM, Sleep Normal Goal 1:: Independant with HEP. Goal 2:: Independant with posture/body mechanics Goal 3:: Decrease lumbar radicular symptoms by 70% or greater to improve function. Goal 4:: Patient to increase lumbar ROM for function of recovery. Goal 5:: Patient to be d/c to prophalaxis Goal 6:: Patient to improve LATOYA back owestry score by 5 points. - Plan Plan: ATA EX'S,DLS PRORAM ,POSTURAL EX'S MODALITIES NEEDEDED - D/C Information If there are questions or concerns regarding this patient's physical therapy, please feel free to call me at [phone]. Thank you for the referral of this patient. Sincerely, Alida Wagner, PT, Cert MDT, OCS
--- NOTE | 2018-11-21 16:18 | HP.PT.NRP(3) ---
HP - Discharge Summary (3) - Patient Information ALIDA VILLAGRAN was seen in my office for initial evaluation on 09/05/18. The following Plan of Care was established for this patient: Initial Frequency: 2x /Week Initial Duration: 4 Weeks Plan from Re-Evaluation: INTERVTIONS 2XWEEK 3WEEKS US/ESTIM/CP PROGRESS TO GRADE RTC/POSTURAL EX'S - Anticipated Interventions Patient/Client Instruction: Educate patient on: Condition, Plan of Care For the Purpose of:: To decrease pain, To increase ROM, To improve muscle performance and motor function, To improve ability to perform ADL's, To increase tolerance to activity/condition/position, To improve ability of physical actions for home/community/work/leisure, To improve health of tissue, To decrease soft tissue restriction, To increase flexibility/ROM, To improve ability to perform tasks related to life management Therapeutic Exercise to Include: Strength training, Postural training, Flexibilty training, Active ROM For the Purpose of:: To decrease pain, To increase ROM, To improve muscle performance and motor function, To improve ability to perform ADL's, To improve ability of physical actions for home/community/work/leisure, To improve health of tissue, To decrease soft tissue restriction, To increase flexibility/ROM, To improve ability to perform tasks related to life management TENS: Yes IF ES: Yes Cryotherapy (ice pack, ice massage): Yes Ultrasound (thermal/non thermal): Yes For the Purpose of:: To decrease pain, To increase ROM, To improve nutrient delivery to tissue, To increase oxygenation perfusion, To improve health of tissue, To decrease soft tissue restriction This patient was last seen in our office . Pertinent comments regarding their Physical therapy will appear below: At this point I will be discontinuing this patient from physical therapy. I would be happy to see this patient again in the future if found appropriate by the physician. Thank you! Alida Wagner, PT, Cert MDT, OCS
--- NOTE | 2018-11-21 16:25 | HP.PT.NRP(3) ---
HP - Discharge Summary (3) - Patient Information ALIDA VILLAGRAN was seen in my office for initial evaluation on 09/05/18. The following Plan of Care was established for this patient: Initial Frequency: 2x /Week Initial Duration: 4 Weeks Plan from Re-Evaluation: INTERVTIONS 2XWEEK 3WEEKS US/ESTIM/CP PROGRESS TO GRADE RTC/POSTURAL EX'S - Anticipated Interventions Patient/Client Instruction: Educate patient on: Condition, Plan of Care For the Purpose of:: To decrease pain, To increase ROM, To improve muscle performance and motor function, To improve ability to perform ADL's, To increase tolerance to activity/condition/position, To improve ability of physical actions for home/community/work/leisure, To improve health of tissue, To decrease soft tissue restriction, To increase flexibility/ROM, To improve ability to perform tasks related to life management Therapeutic Exercise to Include: Strength training, Postural training, Flexibilty training, Active ROM For the Purpose of:: To decrease pain, To increase ROM, To improve muscle performance and motor function, To improve ability to perform ADL's, To improve ability of physical actions for home/community/work/leisure, To improve health of tissue, To decrease soft tissue restriction, To increase flexibility/ROM, To improve ability to perform tasks related to life management TENS: Yes IF ES: Yes Cryotherapy (ice pack, ice massage): Yes Ultrasound (thermal/non thermal): Yes For the Purpose of:: To decrease pain, To increase ROM, To improve nutrient delivery to tissue, To increase oxygenation perfusion, To improve health of tissue, To decrease soft tissue restriction This patient was last seen in our office . Pertinent comments regarding their Physical therapy will appear below: Patient was seen for PT for right shoulder pain focusing on RTC/SCAPULAR strengthening,postural ex,modalities. Thus had MRI is d/c. At this point I will be discontinuing this patient from physical therapy. I would be happy to see this patient again in the future if found appropriate by the physician. Thank you! Alida Wagner, PT, Cert MDT, OCS
== END 2018-10-22 19:00 | disposition home or self-care (01) ==
LOC: PT 10:30
PROVIDERS: Family Provider Family Medicine; PCP Family Medicine; Referring Provider Orthopaedic Surgery; Visit Provider Orthopaedic Surgery
DX: M75.102 Unspecified rotator cuff tear or rupture of left shoulder, not specified as traumatic (principal)
CPT/HCPCS: 97014; 97035; 97110; 97140; 97161; 97530; G0283

== ENCOUNTER → 2018-10-25 12:15 | Outpatient (CLI) | payer OTHER, SELFPAY ==
--- NOTE | 2018-10-25 12:18 | RAD_ITS ---
STUDY: X-RAY RIGHT FOOT, RIGHT TOE REASON FOR EXAM: Male, 48 years old. Chronic pain. No known injury. TECHNIQUE: 3 view(s) of the toe were obtained. COMPARISON: None. FINDINGS: Normal visualized metatarsus. Normal metatarsophalangeal (M.T.P) joint. There is arthrosis of the interphalangeal joint. Normal phalanges and interphalangeal joints. The soft tissue structures are unremarkable. RAD/Toe(s) Min 2 Views IMPRESSION: Degenerative changes involving the distal interphalangeal joint of the great toe. Electronically Signed: Jossue Encarnacion, at 13:50 EDT , Service support ,
== END ==
PROVIDERS: Family Provider Family Medicine; PCP Family Medicine; Referring Provider Family Medicine; Visit Provider Family Medicine
DX: M79.674 Pain in right toe(s) (principal)
CPT/HCPCS: 73660

== ENCOUNTER → 2018-11-05 | Outpatient (CLI) | payer OTHER, SELFPAY ==
--- NOTE | 2018-11-05 13:27 | MRI_ITS ---
STUDY: MRI RIGHT SHOULDER REASON FOR EXAM: Right shoulder pain, felt a pop. TECHNIQUE: Standardized fat and water weighted pulse sequences were obtained in all 3 orthogonal planes. COMPARISON: Radiographs 09/03/2018. FINDINGS: There is a full-thickness tear of the distal supraspinatus tendon (T2 coronal images 11-13) measuring approximately 1.4 cm in length and width. Normal infraspinatus tendon. There is mild subscapularis tendinosis (T2 axial image 10) without discrete tendon tear. Normal teres minor tendon. Normal supraspinatus muscle. Normal infraspinatus muscle. Normal subscapularis muscle. Normal teres minor muscle. There is a small glenohumeral joint effusion. Normal humeral head and visualized proximal humerus. Normal biceps labral complex. There is tendinosis of the intracapsular long biceps tendon (T2 sagittal images 13, 14) and extracapsular long biceps tendon (T2 axial images 11-15). There is a suspected small tear of the posterior inferior labrum (proton density axial image 13). Normal capsulo- ligamentous complex. There is acromioclavicular arthrosis with hypertrophic changes effacing subacromial fat (T2 sagittal images 13, 14). There is a Type II morphology (curved), with a neutral orientation. There is a small volume of subacromial-subdeltoid bursal fluid. Normal visualized coracohumeral and coracoacromial ligaments. Normal deltoid muscle. Normal trapezius muscle. MRI/Upper Ext Joint Only(Routine) IMPRESSION: Full-thickness tear of the supraspinatus tendon. Mild subscapularis tendinosis. Tendinosis of the long biceps tendon. Suspected small tear of the posterior inferior labrum. Acromioclavicular arthrosis. Glenohumeral joint fluid communicating with the subacromial-subdeltoid bursa. Electronically Signed: Noe Herrera MD at 14:32 EDT Tel , Service support ,
== END | disposition home or self-care (01) ==
LOC: MRI 13:18
PROVIDERS: Family Provider Family Medicine; PCP Family Medicine; Referring Provider Family Medicine; Visit Provider Family Medicine
DX: M25.511 Pain in right shoulder (principal)
CPT/HCPCS: 73221

== ENCOUNTER → 2018-12-10 10:24 | Outpatient (CLI) | payer OTHER, SELFPAY ==
--- NOTE | 2018-12-10 10:34 | MRI_ITS ---
STUDY: MRI LEFT SHOULDER REASON FOR EXAM: Male, 48 years old. Recent left shoulder dislocation 2 weeks ago. Pain with limited range of motion. 2 prior surgeries on shoulder. TECHNIQUE: Standardized fat and water weighted pulse sequences were obtained in all 3 orthogonal planes. There is substantial metallic artifact from the postsurgical changes in the proximal left humerus (axial series 2 images 7-24). COMPARISON: Prior MRI of the left shoulder dated December 01, 2017 and prior x-ray of the left shoulder dated April 10, 2018. FINDINGS: Full-thickness full width retracted supraspinatus tendon tear. Tendon is retracted approximately 2.6 cm from its insertion site (coronal series 5 image 13). Marked infraspinatus tendinosis with thinning/attenuation without a full thickness tear (coronal series 5 images 7-10). Subscapularis tendinosis without a full-thickness tear (axial series 2 images 10-16). Normal teres minor tendon. Normal supraspinatus muscle. Moderate to marked atrophy of the infraspinatus muscle (sagittal series 6 image 3). Normal subscapularis muscle. Normal teres minor muscle. Mild arthrosis of the glenohumeral joint with a glenohumeral joint effusion with subchondral cyst formation in the glenoid (axial series 2 images 10-16). Substantial metallic artifact in the humeral head with Hill-Sachs deformity (coronal series 5 images 5-11). Normal biceps labral complex. Torn, retracted long head of the biceps tendon (axial series 2 images 7-17). Increased signal intensity within the anterior and inferior glenoid labrum without a detached tear (axial series 2 images 12-17). Normal capsulo- ligamentous complex. Normal rotator interval. Acromioclavicular joint hypertrophy with narrowing of the subacromial space (sagittal series 6 images 4-9). There is a Type II morphology (curved), with a neutral orientation. A small amount of fluid in the subacromial-subdeltoid bursa (coronal series 4 image 12). Normal visualized coracohumeral and coracoacromial ligaments. Normal quadrilateral space. Normal axillary space. Normal deltoid muscle. Normal trapezius muscle. MRI/Upper Ext Joint Only(Routine) IMPRESSION: Full thickness full width retracted supraspinatus tendon tear as described. Marked infraspinatus tendinosis without a full-thickness tear. Moderate to marked atrophy of the infraspinatus muscle. Mild arthrosis of the glenohumeral joint. Substantial metallic artifact in the proximal humerus. Hill-Sachs deformity of the humeral head. Torn, retracted long head of the biceps tendon. Increased signal intensity within the anterior and inferior glenoid labrum without a detached tear. Acromioclavicular joint hypertrophy with narrowing of the subacromial space. Glenohumeral joint effusion with fluid in the subacromial-subdeltoid bursa. Electronically Signed: Alan Lima MD at 12:00 EDT , Service support ,
== END ==
PROVIDERS: Family Provider Family Medicine; PCP Family Medicine; Referring Provider Orthopaedic Surgery; Visit Provider Orthopaedic Surgery
DX: M24.412 Recurrent dislocation, left shoulder (principal)
CPT/HCPCS: 73221

== ENCOUNTER → 2019-01-28 09:59 | Outpatient (CLI) | payer OTHER, SELFPAY ==
[2019-01-28 13:29] LABS: BUN 16 mg/dL (7-18); BUN/Creat Ratio 16.6 RATIO (10-20); Calcium,Total 8.9 mg/dL (8.5-10.1); Cholesterol 182 mg/dL (200); Creatinine, Serum 0.96 mg/dL (0.70-1.30); EST Glomerular Filtration Rate 88 mL/min (>60); Est Glom Filt Rate - Afr Amer 107 mL/min (>60); Glucose 97 mg/dL (74-106); Triglycerides 153 mg/dL
[2019-01-28 13:30] LABS: Anion Gap 7 (5-15); Chloride 110 mmol/L (98-107); High Density Lipoprotein 45 mg/dL; Potassium 3.9 mmol/L (3.5-5.1); Sodium Level 142 mmol/L (136-145); Very Low Density Lipoprotein 31 mg/dL (5-40)
== END ==
PROVIDERS: Family Provider Family Medicine; PCP Family Medicine; Referring Provider Family Medicine; Visit Provider Family Medicine
DX: Z13.220 Encounter for screening for lipoid disorders (principal); Z13.1 Encounter for screening for diabetes mellitus; Z12.5 Encounter for screening for malignant neoplasm of prostate
CPT/HCPCS: 36415; 80048; 80061; 84153; G0103

== ENCOUNTER 2019-11-27 11:00 | Outpatient (RCR) | payer OTHER, SELFPAY ==
--- NOTE | 2019-05-10 11:18 | HP.PTEVAL ---
Patient's Visit Information ALIDA VILLAGRAN is a 49 year old M referred to Physical Therapy by Bonilla Ch MD with a diagnosis of Right RTC Repair. Date of Evaluation: 05/10/19 Physical Therapist: Ana Bernard DPT - Visit Plan Frequency: 2x /Week Duration: 4 Weeks Plan: AAROM of the elbow until 05/20- then progress to AROM. Can perform PROM and AAROM of the shoulder. - Subjective Findings: Right shoulder arthroscopic RTC Repair by Dr. Ch 04/23/19. Headed home after surgery- has help at home as needed. Is not driving. Right hand dominate with writting. Sleeping in a reclyner- but its not so good. Pain is only if he flinches or moves it to quickly. Worst: 4/10 Best: 0/10 Eases: sling, Tylenol and ice. Wears his sling all the time- only to shower and change clothes is when it comes off. Describes the pain as dull and achy and pulling. No N/T in the hand. No neck pain, blurred vision, dizziness. Had sutures removed Monday- no images taken. 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 RTW date Jul 04 tenatively- lifting up to #50 and traveling. PMHx: 2 left shoulder repairs Meds: Zyrtec as needed. - Objective Posture: FH, RS, increased kyphosis- guarding of the right UE in a sling. Gait: no LE deviation but does have decreased arm swing. Palpation: tender along upper trap- bicipital groove. PROM: wrist/hand: WNL, Elbow: WNL pain at end range flexion and extension. Flexion:85 degrees, Abd: 90 degrees, IR: to belly, ER: 20 degrees. No other testing performed due to MD restrictions - Goals Goal 1:: Patient will be I with HEP and progression Goal Time Frame: 4-6 Weeks Goal 2:: Patient will demo full rom of the shoulder as allowed through protocol Goal Time Frame: 4-6 Weeks Goal 3:: Patient will report sleeping through the night for 1 week Goal Time Frame: 4-6 Weeks Goal 4:: Patient will pancho 5/5 strength in UE as per protcol allows Goal Time Frame: 6-8 Weeks Goal 5:: Patient will maintain proper posture t/o tx session to demo increased core s/s. - Rehabilitation Potential Physical Therapy Diagnosis: Patient presents with hypomobility- he has decreased ROM, strength and muscular endurance s/p surgical intervention leading decreased ability to perform ADL's. Rehabilitation Potential: Good - Anticipated Interventions Patient/Client Instruction: Educate patient on: Benefits of Fitness Program Therapeutic Exercise to Include: Strength training, Endurance training, Body mechanics, Postural training, Flexibilty training, Passive ROM, Active ROM, Scapular Strength/Stabilization For the Purpose of:: To improve muscle performance and motor function Thank you for the opportunity to evaluate your patient. For Medicare and Medicare HMO plans, please review the plan of care and approve it. It will need to be FAXED BACK to us at [phone] for Medicare purposes. For Medicare only, by signing this I certify the plan of care. Please let me know if there are questions or concerns regarding this plan of care. Physician Signature: Date:
--- NOTE | 2019-06-11 14:58 | HP.PTREVAL ---
Bonilla Ch MD, It has been my pleasure to treat ALIDA VILLAGRAN over the last 8 visits for Right RTC Repair - 04/23/19. Please see the progress note below for an update on the physical therapy plan of care! Subjective: Patient reports that he has been sore since last therapy session and progressively gotten worse over the weekend. He is sleeping without his sling and woke up sleeping on that side and was in significant pain. Reports popping and clicking over the upper trap and increased pulling across the top of the shoulder. Objective/Function: Posture: FH, RS- pt is currently wearing sling. Palpation: tender along bicpital groove- no pain in rest of shoulder. ROM: Active: flexion: 120 degrees with pain, Abd: 150 degrees, PROM: flexion 136 degrees, Abd: 172 degrees ER: 49 degrees IR:55 Plan Plan: Held exercises for today and focus on pain management. Encouraged him to continue ROM at home and continue sling use. Follow POC: Protocol Change 06/03: continue stretching, ok from AROM and continue AROM and PROM. may begin light strength 06/17 Goals Goal 1:: Patient will be I with HEP and progression Goal Time Frame: 4-6 Weeks Goal Progress: Progressing Goal 2:: Patient will demo full rom of the shoulder as allowed through protocol Goal Time Frame: 4-6 Weeks Goal Progress: Progressing Goal 3:: Patient will report sleeping through the night for 1 week Goal Time Frame: 4-6 Weeks Goal Progress: Progressing Goal 4:: Patient will pancho 5/5 strength in UE as per protcol allows Goal Time Frame: 6-8 Weeks Goal 5:: Patient will maintain proper posture t/o tx session to demo increased core s/s. Goal Progress: Progressing Anticipated Interventions Patient/Client Instruction: Educate patient on: Benefits of Fitness Program Therapeutic Exercise to Include: Strength training, Endurance training, Body mechanics, Postural training, Flexibilty training, Passive ROM, Active ROM, Scapular Strength/Stabilization For the Purpose of:: To improve muscle performance and motor function Please do not hesitate to contact me at [phone] by phone or if you have questions or concerns regarding this new plan of care! Sincerely, Ana Bernard DPT
--- NOTE | 2019-07-08 11:24 | HP.PTREVAL ---
Bonilla Ch MD, It has been my pleasure to treat ALIDA VILLAGRAN over the last 14 visits for Right RTC Repair - 04/23/19. Please see the progress note below for an update on the physical therapy plan of care! Subjective: Patient reports that the shoulder is still there- wants him in the sling in public but not at home. He wants to protect him from other people. If he works on his computer all day the top shoulder pain comes back. MD thinks its from being out of position or OA- if it keeps bothering him he will do another MRI. Tired today and still has painful ARC movement with pull and sensation. Worst: 09/12 the last week working it and it went away quickly. Most of the pain he is painfree. 60%- ROM is there but its more the strength thats missing. Objective/Function: Posture: FH, RS- pt is currently wearing sling- no guarding of the left UE. Palpation: tender along bicpital groove- no pain in rest of shoulder. ROM: Active: flexion: 165 degrees with pain, Abd: 160 degrees, IR: thumb to L3, ER: 60 degrees. Strength: Isometric: 4/5 with slight discomfort throughout Scap: fair minus Plan Plan: Follow POC/Protocol - P/AA/AROM. Begin light strength 06/17. 07/03: Light strengthening addition Goals Goal 1:: Patient will be I with HEP and progression Goal Time Frame: 4-6 Weeks Goal Progress: Progressing Goal 2:: Patient will demo full rom of the shoulder as allowed through protocol Goal Time Frame: 4-6 Weeks Goal Progress: Progressing Goal 3:: Patient will report sleeping through the night for 1 week Goal Time Frame: 4-6 Weeks Goal Progress: Progressing Goal 4:: Patient will pancho 5/5 strength in UE as per protcol allows Goal Time Frame: 6-8 Weeks Goal 5:: Patient will maintain proper posture t/o tx session to demo increased core s/s. Goal Progress: Progressing Anticipated Interventions Patient/Client Instruction: Educate patient on: Benefits of Fitness Program Therapeutic Exercise to Include: Strength training, Endurance training, Body mechanics, Postural training, Flexibilty training, Passive ROM, Active ROM, Scapular Strength/Stabilization For the Purpose of:: To improve muscle performance and motor function Please do not hesitate to contact me at [phone] by phone or if you have questions or concerns regarding this new plan of care! Sincerely, MATHEW HenningT
--- NOTE | 2019-08-09 12:50 | HP.PTREVAL_ITS ---
Bonilla Ch MD, It has been my pleasure to treat ALIDA VILLAGRAN over the last 25 visits for Right RTC Repair - 04/23/19. Please see the progress note below for an update on the physical therapy plan of care! Subjective: Patient reports that the shoulder is clearly better then when we started. Not back to 100% still has occasional pinch/pull feeling. More when he is lifting weights. Goes back to MD September 05- last visit was 07/29. MD wants more strength- was not worried about the pinching but will keep an eye on it. Would like to continue PT until he gets rid of the pulling sensation or back to MD. Objective/Function: Posture: good thoughout. Palpatoin: tender along biciptal groove. ROM: WNL in all planes- reports pain with IR behind the back in the bicipital groove. Strength: at neutral position: 4+/5, 90/90 position: IR/ER: 3+/5 with pull, straight out from body: flexion: 4-/5 with discomfort abd: 4/5 with discomfort. Elbow: 5/5 Plan Plan: Focus on strength away from body- low weights higher reps to start then increase gradually. Goals Goal 1:: Patient will be I with HEP and progression Goal Time Frame: 4-6 Weeks Goal Progress: Progressing Goal 2:: Patient will demo full rom of the shoulder as allowed through protocol Goal Time Frame: 4-6 Weeks Goal Progress: Goal Met Goal 3:: Patient will report sleeping through the night for 1 week Goal Time Frame: 4-6 Weeks Goal Progress: Goal Met Goal 4:: Patient will demo 5/5 strength in UE as per protcol allows Goal Time Frame: 6-8 Weeks Goal Progress: Progressing Goal 5:: Patient will maintain proper posture t/o tx session to demo increased core s/s. Goal Progress: Progressing Anticipated Interventions Patient/Client Instruction: Educate patient on: Benefits of Fitness Program Therapeutic Exercise to Include: Strength training, Endurance training, Body mechanics, Postural training, Flexibilty training, Passive ROM, Active ROM, Scapular Strength/Stabilization For the Purpose of:: To improve muscle performance and motor function Please do not hesitate to contact me at [phone] by phone or if you have questions or concerns regarding this new plan of care! Sincerely, Ana L Worth, MATHEWT
--- NOTE | 2019-09-17 11:53 | HP.PTREVAL ---
Bonilla Ch MD, It has been my pleasure to treat ALIDA VILLAGRAN over the last 32 visits for Right RTC Repair - 04/23/19. Please see the progress note below for an update on the physical therapy plan of care! Subjective: PATIENT REPORTS HIS PAIN IS VIRTUALLY GONE SINCE RESTING. STILL GET PINCHING AND PULLING SENSATION IN RIGHT SHLD IF HE MOVES THE WRONG WAY BUT IT IS HIT AND MISS. CAN BE PRETTY PAINFUL AT TIMES. RIGHT SHLD PAIN IS NO LONGER DISTURBING SLEEP. STATES HE IS ABOUT 80% BETTER BUT HE DOESN'T HAVE ALL OF HIS STRENGTH BACK COMPARED TO PRE-INJURY. STATES HE HAS NOT BEEN DOING ANY HOME EX'S - HAS JUST BEEN RESTING IT AND DOING NORMAL DAILY ACTIVITIES LIKE PUTTING WOOD ON THE FIRE. STATES HE SPOKE WITH HIS SURGEONS NURSE AND IT WAS DECIDED TO REST FROM THERAPY DUE TO TENDONITIS. FOLLOW UP WAS CANCELLED DUE TO THE VIRUS. PATIENT REPORTS HE WOULD LIKE TO GET HIS STRENGTH BACK. Objective/Function: PATIENT WAS SEEN TODAY FOR RE-ASSESSMENT OF PROGRESS TOWARD THE SET PT GOALS AND THE NEED FOR FURTHER PHYSICAL THERAPY VS READINESS FOR DISCHARGE. UPON EXAM TODAY: PATIENT HAD NO PAIN AT REST BUT PAIN IS EASLY PROVOKED AT THE END OF THE AVAILABLE RANGE INTO RIGHT SHLD INTERNAL ROTATION AND WITH MMT'ING. AROM OF THE RIGHT SHLD IS WNL ALL PLANES BUT END RANGE PAIN IN SUPINE WITH APPROX 75 DEG IR. Strength: at neutral position: 4+/5, 90/90 position: IR/ER: 4-/5 with pull, straight out from body: flexion: 4-/5 with discomfort abd: 4/5 with discomfort. Plan Plan: RESUME PT WITH MODALITIES TO DECREASE PAIN AND INFLAMMATION INDICATED AND SLOW PROGRESSION OF POSTURAL AND JEROME UE STRENGTHENING TOLERATED. PATIENT IS AGREEABLE TO THIS POC. Goals Goal 1:: Patient will be I with HEP and progression Goal Time Frame: 4-6 Weeks Goal Progress: Progressing Goal 2:: Patient will demo full rom of the shoulder as allowed through protocol Goal Time Frame: 4-6 Weeks Goal Progress: Goal Met Goal 3:: Patient will report sleeping through the night for 1 week Goal Time Frame: 4-6 Weeks Goal Progress: Goal Met Goal 4:: Patient will demo 5/5 strength in UE as per protcol allows Goal Time Frame: 6-8 Weeks Goal Progress: Progressing Goal 5:: Patient will maintain proper posture t/o tx session to demo increased core s/s. Goal Progress: Progressing Anticipated Interventions Patient/Client Instruction: Educate patient on: Benefits of Fitness Program Therapeutic Exercise to Include: Strength training, Endurance training, Body mechanics, Postural training, Flexibilty training, Passive ROM, Active ROM, Scapular Strength/Stabilization For the Purpose of:: To improve muscle performance and motor function Please do not hesitate to contact me at [phone] by phone or if you have questions or concerns regarding this new plan of care! Sincerely, Ela Tadeo, PT, Cert MDT
--- NOTE | 2019-10-01 10:49 | HP.PTREVAL ---
Bonilla Ch MD, It has been my pleasure to treat ALIDA VILLAGRAN over the last 37 visits for Right RTC Repair - 04/23/19. Please see the progress note below for an update on the physical therapy plan of care! Subjective: Pt. reports I am doing a little bit better. Pt. has been slowly progressing. Pt. is tolerated all HEP without adverse reaction. Objective/Function: Pt. tolerated additional exercises this date without issues. Pt. contiues to have bicipital groove tenderness. I have been working in nonpaifull strengthening exercise. Pt. is slowly progressing. Pt. to seen physician next week. Pt. has to cancel the rest of the weeks appointments due to work activities. Plan Plan: RESUME PT WITH MODALITIES TO DECREASE PAIN AND INFLAMMATION INDICATED AND SLOW PROGRESSION OF POSTURAL AND JEROME UE STRENGTHENING TOLERATED. PATIENT IS AGREEABLE TO THIS POC. Goals Goal 1:: Patient will be I with HEP and progression Goal Time Frame: 4-6 Weeks Goal Progress: Progressing Goal 2:: Patient will demo full rom of the shoulder as allowed through protocol Goal Time Frame: 4-6 Weeks Goal Progress: Goal Met Goal 3:: Patient will report sleeping through the night for 1 week Goal Time Frame: 4-6 Weeks Goal Progress: Goal Met Goal 4:: Patient will demo 5/5 strength in UE as per protcol allows Goal Time Frame: 6-8 Weeks Goal Progress: Progressing Goal 5:: Patient will maintain proper posture t/o tx session to demo increased core s/s. Goal Progress: Progressing Anticipated Interventions Patient/Client Instruction: Educate patient on: Benefits of Fitness Program Therapeutic Exercise to Include: Strength training, Endurance training, Body mechanics, Postural training, Flexibilty training, Passive ROM, Active ROM, Scapular Strength/Stabilization For the Purpose of:: To improve muscle performance and motor function Please do not hesitate to contact me at [phone] by phone or if you have questions or concerns regarding this new plan of care! Sincerely, Siva Hicks DPT
--- NOTE | 2019-10-16 11:41 | HP.PTREVAL ---
Dr. Bonilla Ch MD, It has been my pleasure to treat ALIDA VILLAGRAN over the last 40 visits for Right RTC Repair - 04/23/19. Please see the progress note below for an update on the physical therapy plan of care! Subjective: Pt. reports I do see that I am getting better. Pt. reports being HEP compliant. Pt. reports feeling better than last time, but still has some pinching feeling at superior aspect of R shoulder. Objective/Function: Pt. reports that he feels like he is progressing. He has good ROM at this point intime. Pt. is still limited with he strength adn has increased soreness with speeds testing and flexion resistance. I would recommend continued PT with focus on pain control and slow progression of loading in very reduced pain ranges. As we have seen with him he will push through some of his pain, but has a latent effect. I recommend slow progress due to this. Plan Plan: Cont. wtih POC, see objective with guidelines for progression. Modalities for pain modulation, slow progression fo tissue loading of biceps and RTC stability. Goals Goal 1:: Patient will be I with HEP and progression Goal Time Frame: 4-6 Weeks Goal Progress: Progressing Goal 2:: Patient will demo full rom of the shoulder as allowed through protocol Goal Time Frame: 4-6 Weeks Goal Progress: Goal Met Goal 3:: Patient will report sleeping through the night for 1 week Goal Time Frame: 4-6 Weeks Goal Progress: Goal Met Goal 4:: Patient will demo 5/5 strength in UE as per protcol allows Goal Time Frame: 6-8 Weeks Goal Progress: Progressing Goal 5:: Patient will maintain proper posture t/o tx session to demo increased core s/s. Goal Progress: Progressing Anticipated Interventions Patient/Client Instruction: Educate patient on: Benefits of Fitness Program Therapeutic Exercise to Include: Strength training, Endurance training, Body mechanics, Postural training, Flexibilty training, Passive ROM, Active ROM, Scapular Strength/Stabilization For the Purpose of:: To improve muscle performance and motor function Please do not hesitate to contact me at [phone] by phone or if you have questions or concerns regarding this new plan of care! Sincerely, Siva Hicks DPT
--- NOTE | 2019-11-13 11:59 | HP.PTREVAL_ITS ---
Dr. Bonilla Ch MD, It has been my pleasure to treat ALIDA VILLAGRAN over the last 44 visits for Right RTC Repair - 04/23/19. Please see the progress note below for an update on the physical therapy plan of care! Subjective: Pt. reports overall doing better, he still has some pain with over head movements, having mostly a catching feel at his AC joint. Pt. reports beign HEP compliant and is back to most work activtiies. 06/14 pain pre treatment today. Objective/Function: Pt. tolerated all PT without adverse reacction. Pt. reports overall doing better, but still has a catch with some over head movements. ROM: Pt. had full ROM of R shoudler, butt has increased soreness (catch) with last 10-20 deg of flexion, abduction and functional IR motions. Pt. reports the catch being at AC joint region. Pt. reprots no pain with rest of motions. MMT: Pt. has 4+/5 strength throughout R UE without increase in symptoms, except flex ion 4/5 mild increase NW at AC joint region. No N/T noted, he is back to work with occassional symptoms Plan Plan: Pt. is doing better. I have him scheduling in 2 weeks to see how he does on his own. If he is doing well he will extend that another 2 weeks. 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 Goals Goal 1:: Patient will be I with HEP and progression Goal Time Frame: 4-6 Weeks Goal Progress: Progressing Goal 2:: Patient will demo full rom of the shoulder as allowed through protocol Goal Time Frame: 4-6 Weeks Goal Progress: Goal Met Goal 3:: Patient will report sleeping through the night for 1 week Goal Time Frame: 4-6 Weeks Goal Progress: Goal Met Goal 4:: Patient will demo 5/5 strength in UE as per protcol allows Goal Time Frame: 6-8 Weeks Goal Progress: Progressing Goal 5:: Patient will maintain proper posture t/o tx session to demo increased core s/s. Goal Progress: Progressing Anticipated Interventions Patient/Client Instruction: Educate patient on: Benefits of Fitness Program Therapeutic Exercise to Include: Strength training, Endurance training, Body mechanics, Postural training, Flexibilty training, Passive ROM, Active ROM, Scapular Strength/Stabilization For the Purpose of:: To improve muscle performance and motor function Please do not hesitate to contact me at [phone] by phone or if you have questions or concerns regarding this new plan of care! Sincerely, MATHEW OrtaT
--- NOTE | 2019-11-29 08:24 | HP.PTDCSUM ---
It has been my pleasure to treat ALIDA VILLAGRAN referred by Dr. Bonilla Ch MD, with the diagnosis of Right RTC Repair - 04/23/19 for a total of 45 visit(s). Discharge Date: 11/27/19 Please see the following information for a summary of their discharge status. Subjective: Pt. reports overall doing much better over the past few weeks. He still reports occassional catch in his R shoulder, but overall reduced frequency. Pt. is back to most daily and work activtiies without limitations. RUE Pain Intensity (Out of 10): 0 % Improvement: 85 Objective/Function: Pt. is doing overall well. Pt. has full ROM and 4+/5 strength throughout his shoulder. Pt. is back to most activities at home with occassional catch, pinch with over head motions. Pt. is compliant with HEP and indendent. Pt. will be DC to HEP at this point in time. Goal 1:: Patient will be I with HEP and progression Goal Progress: Goal Met Goal 2:: Patient will demo full rom of the shoulder as allowed through protocol Goal Progress: Goal Met Goal 3:: Patient will report sleeping through the night for 1 week Goal Progress: Goal Met Goal 4:: Patient will demo 5/5 strength in UE as per protcol allows Goal Progress: Progressing Goal 5:: Patient will maintain proper posture t/o tx session to demo increased core s/s. Goal Progress: Goal Met Plan: DC to HEP. Discharge Comments: Pt. is overall doing well. Pt. reports minimal issues, but does have occassional pinching, catching with lowering from full abd/flexion positioning. Pt. reports sleeping thruoghout the night with minimal issues. Pt. does have some over head weakness, but has HEP to progress this. Pt. to be DC to HEP at this point in time. If there are questions or concerns regarding this patient's physical therapy, please feel free to call me at [phone]. Thank you for the referral of this patient. Sincerely, Siva Hicks DPT
== END 2019-11-27 19:00 | disposition home or self-care (01) ==
LOC: PT 11:00
PROVIDERS: Family Provider Family Medicine; PCP Family Medicine; Referring Provider Orthopaedic Surgery; Visit Provider Orthopaedic Surgery
DX: M75.101 Unspecified rotator cuff tear or rupture of right shoulder, not specified as traumatic (principal)
CPT/HCPCS: 97014; 97035; 97110; 97140; 97161; 97164; G0283

== ENCOUNTER → 2020-04-02 14:29 | Outpatient (CLI) | payer OTHER, SELFPAY ==
--- NOTE | 2020-04-02 14:32 | RAD_ITS ---
HISTORY: Right great toe pain. 3 views of the right great toe. Comparison study is from October 25, 2018. Findings: Metatarsus premise varus deformity is minimal with osteoarthritis at the first metatarsal-phalangeal joint. There is joint space loss and sclerosis with osteophytes. Some arthritis is also present at the first and second interphalangeal joints. Some osteophytes are also present on the interphalangeal joints. No acute fracture perceived. No osseous erosion demonstrated. Some soft tissue swelling is suspected on the plantar surface of the great toe. RAD/Toe(s) Min 2 Views IMPRESSION: Osteoarthritis. Some soft tissue swelling suspected at 0583 Reported and signed by: Obi Murdock MD Electronically Signed: Obi Murdock MD at 5:46 EDT Tel , Service support ,
== END ==
PROVIDERS: PCP Family Medicine; Referring Provider Family Medicine; Visit Provider Family Medicine
DX: M19.071 Primary osteoarthritis, right ankle and foot (principal)
CPT/HCPCS: 73660

== ENCOUNTER → 2020-04-09 18:03 | Outpatient (CLI) | payer OTHER, SELFPAY ==
--- NOTE | 2020-04-09 15:11 | LES_PTH ---
PATIENT: ALIDA VILLAGRAN LOC: [facility] U#:[id number] AGE/SX: 55/M ROOM: RE04/09/[address]: Dr. Hugo New MD : 1970 BED: DIS: SPEC #: [id number] RECD: 04/09/20 18:04 STATUS: WILLEM DARREN #: [id number] LASHAWN: 04/09/20 15:[address]: Hugo New DEPT: SURGICAL PATHOLOGY RECD BY: Tashia Fabian Tissues: Skin of upper extremity and shoulder Procedures: Surgery Specimen Level IV HEADER OPERATION: Left shoulder punch biopsy PRE-OP DIAGNOSIS: Rule out BCC TISSUE SUBMITTED: Left shoulder excision MICROSCOPIC DIAGNOSIS Left shoulder lesion, biopsy: Dermatofibroma. Focal superficial ulceration and associated acute inflammation. See comment. SAM:karen 04/13/20 COMMENT Clinical correlation and appropriate follow up are necessary. MICROSCOPIC DESCRIPTION Slides are reviewed. GROSS DESCRIPTION Received in fixative is one container labeled with the patient's name and designated left shoulder. The specimen consists of a punch biopsy of dey-white skin measuring 0.7 cm in diameter and up to 0.5 cm in length. The specimen is inked, bisected and submitted entirely in one cassette. / SJ:rg 04/10/20 TC:1 CPT: 89488
== END ==
PROVIDERS: PCP Family Medicine; Visit Provider Family Medicine
DX: D23.62 Other benign neoplasm of skin of left upper limb, including shoulder (principal)
CPT/HCPCS: 88305

== ENCOUNTER → 2020-04-10 09:40 | Outpatient (CLI) | payer OTHER, SELFPAY | PROVIDERS: PCP Family Medicine; Visit Provider Family Medicine | DX: Z00.00 Encounter for general adult medical examination without abnormal findings (principal) ==

== ENCOUNTER → 2020-04-28 08:38 | Outpatient (CLI) | payer OTHER, SELFPAY ==
[2020-04-28 10:23] LABS: Hematocrit 42.2 % (40-54); Hemoglobin 14.3 g/dL (13.0-16.5); Mean Corp Hgb Conc 33.9 g/dL (32-36); Mean Corpuscular Hgb 30.1 pg (27.0-32.0); Mean Corpuscular Volume 88.8 fL (80-94); Mean Platelet Vol. 9.3 fl (6.2-12.0); Platelet Count 270 K/mm3 (150-450); RBC Distribution Width CV 12.3 % (11.6-14.6); RBC Distribution Width SD 39.9 fl (35.1-43.9); Red Blood Count 4.75 M/mm3 (4.6-6.2); White Blood Count 6.4 K/mm3 (4.4-11.0)
[2020-04-28 10:34] LABS: Prothrombin Time (Protime)PT. 12.3 SECONDS (11.7-14.9)
[2020-04-28 10:35] LABS: Partial Thromboplast Time 27.9 Seconds (24.1-36.2)
[2020-04-28 10:46] LABS: ALB/GLOB Ratio 1.2 RATIO (0.9-2.4); AST(SGOT) 18 U/L (15-37); Alanine Aminotransfer ALT/SGPT 49 U/L (16-61); Albumin, Serum 3.9 g/dL (3.2-5.0); Alkaline Phosphatase 58 U/L (45-117); Anion Gap 7 (5-15); BUN 16 mg/dL (7-18); Calcium,Total 8.8 mg/dL (8.5-10.1); Chloride 108 mmol/L (98-107); Cholesterol 203 mg/dL (200); Creatinine, Serum 0.94 mg/dL (0.70-1.30); EST Glomerular Filtration Rate 90 mL/min (>60); Est Glom Filt Rate - Afr Amer 109 mL/min (>60); Globulin 3.2 g/dL (2.2-4.2); Glucose 95 mg/dL (74-106); High Density Lipoprotein 48 mg/dL; PSA,Total - Annual Screen 0.92 ng/mL (0.00-4.00); Potassium 3.8 mmol/L (3.5-5.1); Protein, Total 7.1 g/dL (6.4-8.2); Sodium Level 140 mmol/L (136-145); Triglycerides 171 mg/dL; Very Low Density Lipoprotein 34 mg/dL (5-40)
== END ==
PROVIDERS: PCP Family Medicine; Referring Provider Family Medicine; Visit Provider Family Medicine
DX: Z01.818 Encounter for other preprocedural examination (principal); Z12.5 Encounter for screening for malignant neoplasm of prostate; Z13.220 Encounter for screening for lipoid disorders
CPT/HCPCS: 36415; 80053; 80061; 84153; 85027; 85610; 85730; G0103

== ENCOUNTER 2020-05-22 07:28 | Day surgery (SDC) | payer OTHER, SELFPAY ==
[2020-05-22 07:54] VITALS: BP 122/82; PULSE 76; RESP 18; TEMP 36.8; O2SAT 96; BMI 33.3
[2020-05-22] MEDS: Lactated Ringers 1,000 ML 100 ML IV ×2 (08:17→09:30)
--- NOTE | 2020-05-22 09:00 | SYN_PTH ---
PATIENT: ALIDA VILLAGRAN [place] [facility] [id number] AGE/SX: 50/M ROOM: RE05/22/[address]: Dr. William Vicente DPM : 1970 BED: DIS: 05/22/2020 SPEC #: [id number] RECD: 05/22/20 10:05 STATUS: WILLEM DARREN #: [id number] LASHAWN: 05/22/20 09:[address]: William Vicente DEPT: SURGICAL PATHOLOGY RECD BY: Tashia Fabian ENTERED: 05/22/20 10:46 SP TYPE: SYNOVIUM OTHR DR: Dr. Hugo New MD Tissues: A - Synovial tissue of joint, NOS B - Bone of foot, NOS Procedures: Decalcification bone/plaque Surgery Specimen Level III HEADER OPERATION: Right first MPJ cheilectomy arthroplasty / left first MPJ PRE-OP DIAGNOSIS: Osteoarthritis first metatarsophalangeal joint right and left foot TISSUE SUBMITTED: A - Right great toe tissue for crystal analysis, B - Right first metatarsophalangeal bone MICROSCOPIC DIAGNOSIS A. Right great toe tissue for crystal analysis: Minute fragments of bone and soft tissue with reactive changes. Please see comment for crystal analysis by Dr. Poon. B. Right first metatarsophalangeal bone: Pieces of bone with reactive changes. SJ:rg 05/27/20 COMMENT A. The specimen is evaluated at the time of crush prep by Dr. Poon. Immediate Evaluation = Monosodium crystals present. Dr. Vicente notified 11:03 a.m. MICROSCOPIC DESCRIPTION Slides are reviewed. GROSS DESCRIPTION A - Received fresh and then postfixed is one container labeled with the patient's name and designated right great toe tissue for crystal analysis. The specimen consists of two minute fragments of dey-pink soft tissue measuring 0.2 x 0.1 x 0.1 cm. Two touch imprints are prepared for crystal analysis. The entire specimen is submitted in one cassette. B - Received in fixative is one container labeled with the patient's name and designated right first metatarsophalangeal bone. The specimen consists of a piece of dey bone measuring 2.5 x 2 x 1 cm. Also present in the container are multiple pieces of bone that in aggregate measure 2.5 x 2 x 0.4 cm. The entire specimen is submitted in two cassettes after decalcification. / SJ:karen 05/22/20 TC:5 CPT: 29619 x2, 00580
--- NOTE | 2020-05-22 09:07 | RAD_ITS ---
STUDY: X-RAY RIGHT FOOT, FIRST TOE REASON FOR EXAM: Male, 50 years old. RIGHT 1ST MPJ CHEILECTOMY ARTHROPLASTY TECHNIQUE: 2 fluoroscopic digital spot radiographs view(s) of the toe were obtained. COMPARISON: None. FINDINGS: Postoperative air overlying the right first metatarsal head bunionectomy. Minimal spurs in the medial aspect of the first MTP joint. Normal interphalangeal joints. Normal phalanges and interphalangeal joints. Irregularity of the surface of the soft tissue overlying the first MTP joint is from recent surgery. This includes the small amount of air overlying the medial surface of the first metatarsal head. RAD/Toe(s) Min 2 Views IMPRESSION: Postoperative air overlying the medial surface of the first metatarsal head presumably from bunionectomy. Total fluoroscopy time: 12 seconds. Electronically Signed: Hari Plunkett MD at 12:24 EST , Service support ,
[2020-05-22] MEDS: Cefazolin 2 GM in 0.9% Normal Saline 100 ML IV (09:13)
[2020-05-22] MEDS: Bupivacaine Mpf 0.5% 30 ML VIAL (09:32)
[2020-05-22] MEDS: MethylPREDNISolone Acetate 40 MG/ML Vial IM (10:13)
[2020-05-22] MEDS: dexAMETHasone 4 MG/ML Vial (10:30)
[2020-05-22] MEDS: Lidocaine 1% (30 ml sdv) 30 ML Vial (10:34)
[2020-05-22 10:49] VITALS: BP 122/82; BP 138/87; PULSE 80; RESP 16; TEMP 35.8; O2SAT 100
--- NOTE | 2020-05-22 10:50 | DCINST_ITS ---
Discharge Diet: Light diet - advance as tolerated Discharge Activity: May Not Drive Weight Bearing Status: No weight bearing - No weightbearing right foot Keep extremity elevated above heart level: Right Leg - Keep right foot elevated with pillows for at least 50 mintues of every hour Call your doctor if your incision/area has: Continuous Slow Oozing, Sudden Increased Bleeding, Foul Smelling Discharge Call your doctor if you observe: Fever of 101 or Higher, Shortness of breath, Calf discomfort, Uncontrolled pain Cleanse incision/area with: Do not get Incision Wet, Keep Dressing Clean & Dry Allergies/Adverse Reactions: Allergies No Known Allergies Allergy (Verified 05/22/20 07:52) Medications to take at Discharge Cetirizine HCl [Zyrtec] 10 mg PO DAILY 07/04/14 Multivitamins,Therapeutic [Multivitamin] 1 tablet PO DAILY 07/04/14 Hydrocodone/Acetaminophen [Garfield 5-325 Tablet] 1 - 2 ea PO Q6H PRN PRN 3 Days #21 tab 05/22/20 The following prescriptions were given: Hydrocodone/Acetaminophen [Garfield 5-325 Tablet] 1 - 2 each PO Q6H PRN PRN 3 Days #21 tablet PRN Reason: Pain Score 4-10 Transmission Status: Sent to [facility] Primary Care Physician: Geoff New MD [Primary Care Provider] - Test Results: Test results from this visit will be discussed in further detail at your follow- up appointment, if applicable. Please Follow Up With: William Vicente DPM - Call [facility] if you need to get in touch with Dr. Vicente over weekend. When: next week as scheduled, sooner if needed
--- NOTE | 2020-05-22 10:52 | PCM.OPRPT ---
Report of Operation Date of Procedure: 05/22/20 Pre-Operative Diagnosis: Osteoarthritis right and left 1st metatarsal phalangeal joint Post-Operative Diagnosis: Same Surgery/Procedure Performed:: 1. 1st metatarsal phalageal joint right foot cheilectomy arthroplasty. 2. Corticosteroid injection left 1st metatarsal phalangeal joint conveyor monitor: yes - Dr. Juno Angeles Type of Anesthesia:: General, Local Special Medications: Bone from right 1st metatarsal phalangeal joint sent to pathology including crystal analysis Description of Procedure: Indications: This is a 50 year old gentleman with painful right and left 1st metatarsal phalagneal joint (MTPJ) due to osteoarthritis w/ hallux ridigus, however right is significantly worse than left. Patient has pain and significantly limited range of motion, right significantly worse than left. Significant osteoarthritis was seen on xrays of the right foot, and mild on the left. This has been treated with conservative/nonsurgical management, but symptoms persists and he continues to have pain and symptoms. He elected to undergo surgery on the right and corticosteroid injection on the left. We discussed the procedure options, and we are planning to proceed with 1st MTPJ cheilectomy arthroplasty on the right and corticosteroid injection on the left. We reviewed the rationale of this as well as the possible benefits, risks, potential complications goals and expectations of each. This was discussed with him in great detail. Typical post op recovery was reviewed with patient, and he expressed understanding and agreement. The consent forms were reviewed with him in detail, and he freely signed them. No guarantees were given nor implied. All of his questions were answered. Patient was medically cleared. Operative Procedure: The patient was brought back into the operating room and was placed on the operating room table in the supine position. The patient was carefully secured to the operating room table with a safety belt around the waist. A time out was performed and the patient was properly identified and the surgical plan was confirmed. The patient received 2 grams of IV Ancef for antibiotic prophylaxis. A well padded pneumatic tourniquet was applied around the right ankle. The patient did receive general anesthesia per the anesthesiologist. The skin was cleansed with 70% Isopropyl alcohol, and 20mL of 0.5% Bupivacaine plain was given as a 1st ray block on the right foot. The right foot was scrubbed, prepped, draped in the usual aseptic fashion. A timeout was performed and the patient was properly identified and the surgical plan was confirmed. The right foot was elevated for 3 minutes and the ankle pneumatic tourniquet was inflated to 250mmHg. Right 1st metatarsal phalangeal joint cheilectomy/arthroplasty: Attention was directed to the 1st MTPJ. There as noted to be significant limited range of motion present, with significant grinding and dorsal jamming consistent with significant hallux rigidus and osteoarthritis. There was crepitus on range of motion to the joint consistent with osteoarthritis hallux rigidus. A linear longitudinal skin incision was made overlying the dorsal medial 1st MTPJ, medial to the Extensor Hallucis Longus tendon using a 15 scalpel blade. Careful dissection was completed down through the subcutaneous tissue layer, down to the 1st MTPJ capsule, which was incised with a 15 scalpel blade. The 1st MTPJ capsule was partially reflected exposing the dorsal, lateral, and medial aspect of the 1st metatarsal head and base of the hallux proximal phalanx. There were osteophytes around the dorsal 1st metatarsal head as well as the dorsal aspect of the base of the hallux proximal phalanx. There was a dorsal eminence present to the 1st metatarsal head. The cartilage on the dorsal one third to one half of the 1st metatarsal head was severely worn away and unhealthy. There was a large osteochondral lesion to the dorsal central 1st metatarsal head, there was noted to be diffuse global thinning and wearing away of cartilage present. There were significant adhesions of the sesamoid apparatus. The adhesions of the sesamoid apparatus were freed up using a McGlamry elevator. Using a powered sagittal saw the dorsal eminence, as well as the dorsal one third to one half 1st metatarsal head was resected - the osteochondral defect was resected in this process. The dorsal aspect of the base of the hallux proximal phalanx was resected with the powered sagittal saw. This was sent to pathology for further evaluation. All osteophytes were resected from the 1st metatarsal head and from the base of the hallux proximal phalanx using a bone cutting rongeur - these were sent to pathology with the specimen. Proper resection was confirmed using intra operative fluoroscopy, without the use of a manufacturing quality technician. During the above there was also noted to be some crystals consistent with gout, which were resected and sent to pathology as a separate specimen. There was noted to be osteochondral defect to the base of the hallux proximal phalanx which was drilled with a 0.062 in Kwire to help stimulate fibrocartilage. At this time the 1st MTPJ was put through range of motion and it was gliding normally and smoothly, with no impingement or crepitus present, there was 90 degrees of 1st metatarsal phalangeal joint dorsiflexion, confirmed with fluoroscopy. There was no popping or catching present with range of motion. The site was flushed out with copious amounts of normal saline solution. The joint capsule was reapproximated in neutral position using 3-0 Vicryl, the subcutaneous tissue layer was reapproximated using 3-0 Vicryl, the skin was reapproximated using 4-0 Monocryl. Cavilon was painted to the sutured skin edges and steristrips were applied across the sutured skin incision. All vital structure, including all vital neurovascular structures were properly identified and protected as necessary throughout the procedure. The pneumatic tourniquet was deflated (total tourniquet time was 63 minutes), there was immediate return of vascular flow to the foot and all toes. CFT < 2 seconds to all toes, and had normal temperature gradient present with no evidence of ischemia. Hemostasis was achieved. A dressing was applied which consisted of Betadine soaked adaptic, 4x4 gauze, Kerlix and michelle dressing to the foot. Left 1st metatarsal phalangeal joint corticosteroid injection: The skin was prepped with 70% Isopropyl alcohol. A mixture of 1mL of 1% Lidocaine plain, 0.5% Bupivicaine plain, and 4mg/ml (1mL) of Dexamethasone Phosphate was injection to and immediately around the joint. using a 25 gauge needle. Bandaid applied over the injection site. The patient tolerated the above operative procedure well at the anesthesia well with no complications. The patient was transported to the recovery room with vital signs stable and in good condition. Post operative orders were placed. Post operative instructions were reviewed with patient today, as well as with his who was with him today. No weightbearing right foot, keep right foot elevated for at least 50 minutes of every hour, keep dressing clean, dry and intact to foot. Prescription for [place] 5/325mg tabs was prescribed: 1-2 tabs PO q 6 hours PRN pain for pain control. He was dispensed a surgical shoe for the right foot. Post operative xrays were obtained of the right foot in the recovery room which confirmed 1st MTPJ cheilectomy arthroplasty. No post operative complications and otherwise no acute changes and stable xrays otherwise. Grafts/Implants Used: None - Complications None
[2020-05-22 11:00] VITALS: BP 122/82; BP 129/96; PULSE 76; RESP 16; O2SAT 98
[2020-05-22 11:15] VITALS: BP 122/82; BP 132/99; PULSE 74; RESP 16; O2SAT 99
--- NOTE | 2020-05-22 11:15 | RAD_ITS ---
STUDY: X-RAY - RIGHT FOOT CLINICAL: Male, 50 years old. Post op right 1st MPJ cheilectomy / left 1st MPJ steroid injection TECHNIQUE: 3 view(s) of the foot. COMPARISON: 04/02/2020. FINDINGS: Normal talus, calcaneus, and tarsal bones. Minimal posterior plantar calcaneal spur. Normal visualized subtalar, talonavicular, calcaneocuboid, tarsal and tarsometatarsal articulations. Normal metatarsi. Small spurs in the lateral aspect of the metatarsophalangeal joint of the great toe. Normal tibial and fibular sesamoid bones. Normal interphalangeal joint of the great toe. Normal phalanges of the great toe. Normal second through fifth metatarsophalangeal joints. Normal interphalangeal joints and phalanges of the lesser toes. Soft tissue swelling around the first metatarsal bone. RAD/Foot min 3 Views IMPRESSION: 1. Soft tissue swelling around the right first metatarsal bone is presumably related to MPJ image during injection. 2. No acute osseous abnormality of the right foot. Electronically Signed: Hari Plunkett MD at 12:57 EST , Service support ,
[2020-05-22 11:30] VITALS: BP 122/82; BP 149/97; PULSE 76; RESP 16; TEMP 36.2; O2SAT 98
[2020-05-22 12:46] LABS: Uric Acid 7.3 mg/dL (3.5-7.2)
[2020-05-22 12:50] VITALS: BP 122/82; BP 142/77; PULSE 74; RESP 18; TEMP 36.2; O2SAT 99
== END 2020-05-22 13:00 | disposition home or self-care (01) ==
LOC: SDC 07:29 → AC 07:29
PROVIDERS: PCP Family Medicine; Referring Provider Podiatrist; Visit Provider Podiatrist
PROC: (CPT 20605; principal; 2020-05-22 08:45)
DX: M19.071 Primary osteoarthritis, right ankle and foot (principal)
CPT/HCPCS: 01480; 20605; 28289; 36415; 73630; 73660; 76000; 84550; 87426; 88304; 88305; 88307; 88311; C9803; J7120; J2405

== ENCOUNTER 2020-09-09 10:00 | Outpatient (RCR) | payer OTHER, SELFPAY ==
--- NOTE | 2020-07-21 08:41 | HP.PTEVAL_ITS ---
Patient's Visit Information ALIDA VILLAGRAN is a 50 year old M referred to Physical Therapy by Dr. William Vicente DPM with a diagnosis of S/P 1st MTPJ cheilectomy/arthoplasty. Date of Evaluation: 07/16/20 Physical Therapist: Siva Hicks DPT - Visit Plan Frequency: 2-3x /Week Duration: 4-6 Weeks Plan: Start with US to 1st MTPJ, progress passive and active ROM. Add in 1st toe flex/ext strengthening and foot intrinsic strengthening as tolerated. - Subjective Pt. is here today for his initial evaluation S/P 1st MTPJ cheilectomy/arthoplasty. DOS 05/22/20. Pt. reports overall doing well and has been working on ROM at home, but was feeling like he was not getting enough ROM which is effecting his gait and felt like he should go to PT and work on this. PT. reports increased pain with walking and standing for longer periods of time 1+ hours. 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 Pt. reports pain with increased great toe flexion and extension. He reports slight numbness, but not bad. He is hopeful to decrease symptoms, increase ROM and strength allowing him to walk and do all of his job duties without limitations. - Pain R great toe Pain Intensity (Out of 10): 2 Pain Intensity Range: 1, 6 - Objective POSTURE: Pt. has good equal wt. shifting between B feet. Pt. has good arch hiegh bilaterally without increase in symptoms. Normal Wbing noted. No antalgic positioning. PALPATION: Pt. has normal healing incision on dorsum of great toe. Pt. reports no pain with palpation to this region, but does have increased pain between 1st and 2nd toes. No signs of mortons neuroma noted. NEURO: slight reduction in senstion near incision. Normal DTR of achilles noted. ROM: Normal 2nd- 5th toe flexion/extension. 1st toe- extension 55deg, flexion 18deg. at MTP joint. PIP: flexion 30deg. MMT: R ankle 5/5 throughout; R great toe- ext 4/5, flexion 4/5. Foot flexor intrinsics- 4/5 throughout. GAIT: Pt. has decent gait pattern but does have reduced forefoot rocker moment, most likely due to pain with incerased great toe extension. - Goals Goal 1:: LTG: Pt. to be I with HEP. Goal Time Frame: 4-6 Weeks Goal 2:: STG: pt. to have increased 1st MTPJ ROM increased by 25% in both extension and flexion. Goal Time Frame: 2-4 Weeks Goal 3:: LTG: Pt. to have full 1st MTPJ ROM allowing for improved gait pattern. Goal Time Frame: 4-6 Weeks Goal 4:: LTG: Pt. to have increased strength of great toe and foot intrinsics to 5/5 throughout. Goal Time Frame: 4-6 Weeks Goal 5:: LTG: Pt. to walk and stand for unlimited time frames without incerase in symptoms. Goal Time Frame: 4-6 Weeks - Rehabilitation Potential Physical Therapy Diagnosis: Pt. has signs and symptoms consistent with S/P 1st MTPJ cheilectomy/arthoplasty. Pt. has subsequent hypomobility at this joint and PIP as well. This decreased motion is also painful which is effecting his gait pattern and tolerance to standing/walking. Rehabilitation Potential: Excellent - Anticipated Interventions Patient/Client Instruction: Educate patient on: Condition, Plan of Care, Risk Factors, Benefits of Fitness Program For the Purpose of:: To improve safety, To improve health and function, To foster healthy habits, To improve decision making, To facilitate caregiver knowledge, To improve self management, To prevent re-injury, To improve ability to perform tasks related to life management, To improve tolerance to ADL's Therapeutic Exercise to Include: Strength training, Power training, Balance training, Coordination, Postural training, Flexibilty training, Gait and locomotor training, Passive ROM, Active ROM For the Purpose of:: To decrease pain, To decrease swelling/inflammation, To increase ROM, To improve nutrient delivery to tissue, To increase oxygenation perfusion, To improve muscle performance and motor function, To improve gait and locomotor functions, To improve health of tissue, To decrease soft tissue restriction, To increase flexibility/ROM Manual Therapy Techniques to Include: Mobilization, Passive ROM, Functional dry needling, Soft tissue mobilization For the Purpose of:: To decrease pain, To decrease swelling/inflammation, To increase ROM, To improve nutrient delivery to tissue, To increase oxygenation perfusion, To improve muscle performance and motor function Ultrasound (thermal/non thermal): Yes For the Purpose of:: To decrease pain, To decrease swelling/inflammation, To increase ROM, To improve nutrient delivery to tissue, To increase oxygenation perfusion Thank you for the opportunity to evaluate your patient. For Medicare and Medicare HMO plans, please review the plan of care and approve it. It will need to be FAXED BACK to us at [phone] for Medicare purposes. For Medicare only, by signing this I certify the plan of care. Please let me know if there are questions or concerns regarding this plan of care. Physician Signature: Date:_
--- NOTE | 2020-08-19 09:22 | HP.PTREVAL ---
Dr. William Vicente, DPM, It has been my pleasure to treat ALIDA VILLAGRAN over the last 12 visits for S/P 1st MTPJ cheilectomy/arthoplasty. Please see the progress note below for an update on the physical therapy plan of care! Subjective: Pt. reports overall having improvement. He is still having pain with pre swing phase of gait on R side. He has pain with 1st MTPJ extension, but has felt improvement with his ROM and toelrance to standing. He reports having increased pain this weekend after standign 7+ hours at work. Objective/Function: Overall he has improvement in his ROM, 1st MTPJ extension 50deg with leathery end feel, pain with pushing past this motion. Flexion 15deg. Normal add/abd of MTPJ. ankle DF 12deg. Plan Plan: Cont. with POC. Use of US to decrease pain and increase tissue elasticity. Cont. with AP and PA glides of MTPJ grades IV to progress further into tissue limitations. May start to add in some active motion of toe flexion and extension both for motor contol and to promote some foot intrinsic strength. ie towel curls, progressing to light band resistances. Goals Goal 1:: LTG: Pt. to be I with HEP. Goal Time Frame: 4-6 Weeks Goal Progress: Progressing Goal 2:: STG: pt. to have increased 1st MTPJ ROM increased by 25% in both extension and flexion. Goal Time Frame: 2-4 Weeks Goal Progress: Goal Met Goal 3:: LTG: Pt. to have full 1st MTPJ ROM allowing for improved gait pattern. Goal Time Frame: 4-6 Weeks Goal Progress: Progressing Goal 4:: LTG: Pt. to have increased strength of great toe and foot intrinsics to 5/5 throughout. Goal Time Frame: 4-6 Weeks Goal Progress: Progressing Goal 5:: LTG: Pt. to walk and stand for unlimited time frames without incerase in symptoms. Goal Time Frame: 4-6 Weeks Goal Progress: Progressing Anticipated Interventions Patient/Client Instruction: Educate patient on: Condition, Plan of Care, Risk Factors, Benefits of Fitness Program For the Purpose of:: To improve safety, To improve health and function, To foster healthy habits, To improve decision making, To facilitate caregiver knowledge, To improve self management, To prevent re-injury, To improve ability to perform tasks related to life management, To improve tolerance to ADL's Therapeutic Exercise to Include: Strength training, Power training, Balance training, Coordination, Postural training, Flexibilty training, Gait and locomotor training, Passive ROM, Active ROM For the Purpose of:: To decrease pain, To decrease swelling/inflammation, To increase ROM, To improve nutrient delivery to tissue, To increase oxygenation perfusion, To improve muscle performance and motor function, To improve gait and locomotor functions, To improve health of tissue, To decrease soft tissue restriction, To increase flexibility/ROM Manual Therapy Techniques to Include: Mobilization, Passive ROM, Functional dry needling, Soft tissue mobilization For the Purpose of:: To decrease pain, To decrease swelling/inflammation, To increase ROM, To improve nutrient delivery to tissue, To increase oxygenation perfusion, To improve muscle performance and motor function Ultrasound (thermal/non thermal): Yes For the Purpose of:: To decrease pain, To decrease swelling/inflammation, To increase ROM, To improve nutrient delivery to tissue, To increase oxygenation perfusion Please do not hesitate to contact me at [phone] by phone or if you have questions or concerns regarding this new plan of care! Sincerely, MATHEW OrtaT
--- NOTE | 2020-11-09 14:48 | HP.PT.NRP ---
ALIDA VILLAGRAN was seen in my office for initial evaluation on 07/16/20. The following Plan of Care was established for this patient: Initial Frequency: 2-3x /Week Initial Duration: 4-6 Weeks Patient/Client Instruction: Educate patient on: Condition, Plan of Care, Risk Factors, Benefits of Fitness Program For the Purpose of:: To improve safety, To improve health and function, To foster healthy habits, To improve decision making, To facilitate caregiver knowledge, To improve self management, To prevent re-injury, To improve ability to perform tasks related to life management, To improve tolerance to ADL's Therapeutic Exercise to Include: Strength training, Power training, Balance training, Coordination, Postural training, Flexibilty training, Gait and locomotor training, Passive ROM, Active ROM For the Purpose of:: To decrease pain, To decrease swelling/inflammation, To increase ROM, To improve nutrient delivery to tissue, To increase oxygenation perfusion, To improve muscle performance and motor function, To improve gait and locomotor functions, To improve health of tissue, To decrease soft tissue restriction, To increase flexibility/ROM Manual Therapy Techniques to Include: Mobilization, Passive ROM, Functional dry needling, Soft tissue mobilization For the Purpose of:: To decrease pain, To decrease swelling/inflammation, To increase ROM, To improve nutrient delivery to tissue, To increase oxygenation perfusion, To improve muscle performance and motor function Ultrasound (thermal/non thermal): Yes For the Purpose of:: To decrease pain, To decrease swelling/inflammation, To increase ROM, To improve nutrient delivery to tissue, To increase oxygenation perfusion This patient was last seen in our office 09/09/20. Pertinent comments regarding their Physical therapy will appear below: Pt. was seen for his L foot pain. He was treated with joint mobilizations, US and stretching. He was still having some difficulty with hsi forefoot rocker moment with gait at his last visit. He was to follow up with physician and report back to PT if needed. Pt. has not been seen in 2 months and will be DC from PT at this point in time. At this point I will be discontinuing this patient from physical therapy. I would be happy to see this patient again in the future if found appropriate by the physician. Thank you! Siva Hicks DPT
== END 2020-09-09 19:00 | disposition home or self-care (01) ==
LOC: PT 10:00
PROVIDERS: PCP Family Medicine; Referring Provider Podiatrist; Visit Provider Podiatrist
DX: Z98.890 Other specified postprocedural states (principal)
CPT/HCPCS: 97035; 97110; 97140; 97161

== ENCOUNTER → 2020-12-02 17:01 | Outpatient (CLI) | payer OTHER, SELFPAY ==
--- NOTE | 2020-12-02 17:06 | MRI_ITS ---
HISTORY: RT FOOT OSTEOARTHRITIS,SESAMOIDITIS 1ST MTP EXAMINATION: MR Forefoot W/O Contrast TECHNIQUE: Multiplanar and multisequence MR images of the right forefoot foot. IV Contrast dosage and agent: None COMPARISON: Radiograph right foot and toes May 22, 2020 FINDINGS: SOFT TISSUES: Susceptibility artifact surrounds the first metatarsal phalangeal joint from prior surgery with superimposed intra-articular air or loose body not excluded, coronal image 10. There is synovial thickening about the first metatarsophalangeal joint with trace intra-articular fluid. BONE: Normal osseous alignment. First metatarsal head and first proximal phalanx interosseous edema with loss of T1 signal at the distal inferior first metatarsal head and dorsal first proximal phalanx. Osteotomy changes and likely erosions at the first metatarsal head and dorsal first proximal phalanx base. Small osteophytes also present at the first metatarsophalangeal joint. TENDONS: No first digit tenosynovitis appreciated. The flexor and extensor tendons are intact. MUSCLES: Normal bulk and signal. LIGAMENTS: The Lisfranc ligament is intact. MISCELLANEOUS: Intact plantar fascia. MRI/Lower Ext/No Jt/w/o IMPRESSION: First metatarsophalangeal joint postsurgical changes with erosions and marrow edema on both sides of the joint and synovial thickening concerning for infection. Crystalline osteo-arthropathy such as gout or erosive osteoarthritis can have similar appearance. No drainable effusion is appreciated. No evidence of sesamoiditis. at 2259 Reported and signed by: Arden Jalloh MD Electronically Signed: Arden Jalloh MD at 22:57 EDT Tel , Service support ,
== END ==
PROVIDERS: PCP Family Medicine; Referring Provider Podiatrist; Visit Provider Podiatrist
DX: M25.871 Other specified joint disorders, right ankle and foot (principal); M19.071 Primary osteoarthritis, right ankle and foot
CPT/HCPCS: 73718

== ENCOUNTER → 2020-12-04 15:04 | Outpatient (CLI) | payer OTHER, SELFPAY ==
[2020-12-04 17:48] LABS: Anion Gap 6 (5-15); BUN 14 mg/dL (7-18); BUN/Creat Ratio 10.3 RATIO (10-20); CRP < 2.90 mg/L (0.0-3.0); Calcium,Total 9.1 mg/dL (8.5-10.1); Chloride 105 mmol/L (98-107); Creatinine, Serum 1.36 mg/dL (0.70-1.30); EST Glomerular Filtration Rate 59 mL/min (>60); Est Glom Filt Rate - Afr Amer 71 mL/min (>60); Glucose 92 mg/dL (74-106); Potassium 3.4 mmol/L (3.5-5.1); Sodium Level 141 mmol/L (136-145); Uric Acid 8.7 mg/dL (3.5-7.2)
[2020-12-04 17:51] LABS: Erythrocyte Sedimentation Rate 2 mm/hr (0-20)
== END ==
PROVIDERS: PCP Family Medicine; Referring Provider Podiatrist; Visit Provider Podiatrist
DX: M10.9 Gout, unspecified (principal)
CPT/HCPCS: 36415; 80048; 84550; 85652; 86140

== ENCOUNTER → 2021-01-19 15:06 | Outpatient (CLI) | payer OTHER, SELFPAY ==
[2021-01-19 18:35] LABS: Anion Gap 4 (5-15); BUN 12 mg/dL (7-18); BUN/Creat Ratio 12.3 RATIO (10-20); Calcium,Total 9.1 mg/dL (8.5-10.1); Chloride 108 mmol/L (98-107); Creatinine, Serum 0.98 mg/dL (0.70-1.30); EST Glomerular Filtration Rate 86 mL/min (>60); Est Glom Filt Rate - Afr Amer 103 mL/min (>60); Glucose 86 mg/dL (74-106); Potassium 4.1 mmol/L (3.5-5.1); Sodium Level 142 mmol/L (136-145)
== END ==
PROVIDERS: PCP Family Medicine; Referring Provider Family Medicine; Visit Provider Family Medicine
DX: N28.9 Disorder of kidney and ureter, unspecified (principal)
CPT/HCPCS: 36415; 80048

== ENCOUNTER → 2021-01-21 09:17 | Outpatient (CLI) | payer OTHER, SELFPAY | PROVIDERS: PCP Family Medicine; Referring Provider Family Medicine; Visit Provider Family Medicine | DX: Z71.89 Other specified counseling (principal) | CPT/HCPCS: 87635; U0005; U0003 ==

== ENCOUNTER → 2021-03-19 11:18 | Outpatient (CLI) | payer OTHER, SELFPAY ==
[2021-03-19 15:26] LABS: Uric Acid 6.1 mg/dL (3.5-7.2)
== END ==
PROVIDERS: PCP Family Medicine; Referring Provider Family Medicine; Visit Provider Family Medicine
DX: M10.9 Gout, unspecified (principal)
CPT/HCPCS: 36415; 84550

== ENCOUNTER → 2021-10-04 | Outpatient (CLI) | payer OTHER, SELFPAY ==
--- NOTE | 2021-10-04 14:45 | RAD_ITS ---
STUDY: X-RAY RIGHT FOOT, FIRST TOE REASON FOR EXAM: Male, 51 years old. Gout. TECHNIQUE: 3 view(s) of the toe were obtained. COMPARISON: None. FINDINGS: Osteopenia. Postsurgical changes of the distal aspect of the first metatarsal. Moderate arthrosis of the MTP joint, slightly progressed since the prior study. Mild arthrosis of the DIP joint of the first toe. The soft tissue structures are unremarkable. RAD/Toe(s) Min 2 Views IMPRESSION: Post surgical changes with osteoarthritic change. No bone erosion to suggest gout. No acute abnormality. Electronically Signed: Alan Lima MD at 11:21 EDT ,
[2021-10-04 18:03] LABS: Anion Gap 5 (5-15); BUN 12 mg/dL (7-18); BUN/Creat Ratio 11.2 RATIO (10-20); Calcium,Total 8.7 mg/dL (8.5-10.1); Chloride 107 mmol/L (98-107); Creatinine, Serum 1.07 mg/dL (0.70-1.30); EST Glomerular Filtration Rate 77 mL/min (>60); Est Glom Filt Rate - Afr Amer 93 mL/min (>60); Glucose 93 mg/dL (74-106); Potassium 3.4 mmol/L (3.5-5.1); Sodium Level 141 mmol/L (136-145); Uric Acid 6.7 mg/dL (3.5-7.2)
== END | disposition home or self-care (01) ==
LOC: MTLAB 14:43
PROVIDERS: PCP Family Medicine; Referring Provider Family Medicine; Visit Provider Family Medicine
DX: M10.9 Gout, unspecified (principal)
CPT/HCPCS: 36415; 73660; 80048; 84550

== ENCOUNTER → 2021-10-20 | Outpatient (CLI) | payer OTHER, SELFPAY | END | disposition home or self-care (01) | LOC: LABSPEC 10:53 | PROVIDERS: PCP Family Medicine; Referring Provider Family Medicine; Visit Provider Family Medicine | DX: R05.9 Cough, unspecified (principal) | CPT/HCPCS: 87635; U0003; U0005 ==

== ENCOUNTER → 2022-03-03 | Outpatient (CLI) | payer OTHER, SELFPAY ==
[2022-03-03 16:02] LABS: Anion Gap 8 (5-15); BUN 14 mg/dL (7-18); BUN/Creat Ratio 16.5 RATIO (10-20); Calcium,Total 9.1 mg/dL (8.5-10.1); Chloride 106 mmol/L (98-107); Cholesterol 182 mg/dL (200); Creatinine, Serum 0.85 mg/dL (0.70-1.30); EST Glomerular Filtration Rate 100 mL/min (>60); Est Glom Filt Rate - Afr Amer 121 mL/min (>60); Glucose 90 mg/dL (74-106); High Density Lipoprotein 47 mg/dL; PSA,Total - Annual Screen 1.35 ng/mL (0.00-4.00); Potassium 3.7 mmol/L (3.5-5.1); Sodium Level 142 mmol/L (136-145); Triglycerides 153 mg/dL; Very Low Density Lipoprotein 31 mg/dL (5-40)
== END | disposition home or self-care (01) ==
LOC: MFPLAB 11:55
PROVIDERS: PCP Family Medicine; Referring Provider Family Medicine; Visit Provider Family Medicine
DX: Z13.220 Encounter for screening for lipoid disorders (principal); Z12.5 Encounter for screening for malignant neoplasm of prostate; Z13.1 Encounter for screening for diabetes mellitus
CPT/HCPCS: 36415; 80048; 80061; 84153; G0103

== ENCOUNTER → 2023-02-08 | Outpatient (CLI) | payer OTHER, SELFPAY ==
[2023-02-08 18:08] LABS: Anion Gap 7 (5-15); BUN 11 mg/dL (7-18); BUN/Creat Ratio 11.9 RATIO (10-20); Calcium,Total 8.8 mg/dL (8.5-10.1); Chloride 106 mmol/L (98-107); Cholesterol 199 mg/dL (200); Creatinine, Serum 0.92 mg/dL (0.70-1.30); EST Glomerular Filtration Rate 91 mL/min (>60); Est Glom Filt Rate - Afr Amer 110 mL/min (>60); Glucose 99 mg/dL (74-106); High Density Lipoprotein 49 mg/dL; Potassium 3.7 mmol/L (3.5-5.1); Sodium Level 140 mmol/L (136-145); Triglycerides 142 mg/dL; Uric Acid 6.7 mg/dL (3.5-7.2); Very Low Density Lipoprotein 28 mg/dL (5-40)
== END | disposition home or self-care (01) ==
LOC: MFPLAB 16:10
PROVIDERS: PCP Family Medicine; Visit Provider Family Medicine
DX: M10.9 Gout, unspecified (principal); Z13.220 Encounter for screening for lipoid disorders; Z12.5 Encounter for screening for malignant neoplasm of prostate; Z13.1 Encounter for screening for diabetes mellitus
CPT/HCPCS: 36415; 80048; 80061; 84550

== ENCOUNTER → 2023-07-31 | Outpatient (CLI) | payer OTHER, SELFPAY ==
--- NOTE | 2023-07-31 09:54 | RAD_ITS ---
STUDY: X-RAY - RIGHT FOOT CLINICAL: Male, 53 years old. Pain base of 5th MT TECHNIQUE: 3 view(s) of the foot. COMPARISON: None. FINDINGS: There is a plantar calcaneal spur. Normal visualized subtalar, talonavicular, calcaneocuboid, tarsal and tarsometatarsal articulations. Normal metatarsi. There is degenerative arthrosis of the metatarsophalangeal joint of the hallux . Normal tibial and fibular sesamoid bones. Normal interphalangeal joint of the great toe. Normal phalanges of the great toe. Normal second through fifth metatarsophalangeal joints. Normal interphalangeal joints and phalanges of the lesser toes. The soft tissue structures are unremarkable. RAD/Foot min 3 Views IMPRESSION: Plantar spur. 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 Electronically Signed: Jossue Encarnacion MD at 11:22 EST ,
--- NOTE | 2023-07-31 09:54 | RAD_ITS ---
STUDY: X-RAY - PELVIS AND LEFT HIP REASON FOR EXAM: Male, 53 years old. Left hip pain. TECHNIQUE: 3 views of the pelvis and hip. COMPARISON: None. FINDINGS: There is a non-specific bowel gas pattern. Normal visualized soft tissue structures. Normal bilateral iliac wings, sacroiliac joints and visualized sacrum. Normal bilateral superior and inferior pubic rami. Normal pubic symphysis. Normal bilateral ischial tuberosities. Normal visualized femoral head. Normal acetabulum. There is mild articular joint space narrowing of the hip. RAD/HIP, UNI W/ Pelvis 2-3 Views IMPRESSION: Mild degree of the left hip joint narrowing. Electronically Signed: Jossue Encarnacion MD at 11:21 EST ,
--- OUTSIDE RECORDS SUMMARY | 2023-07-31 10:33 | XMS RPT_ITS | CCD ---
Author Name Unknown Address [address] [place] [address] Organization [facility] Results Test Name Value Interpretation Reference Range Facil ity Summary Purpose Family History No Family History Records Found Advance Directives No Advanced Directives Records Found Additional Source Comments (unrecognized sect ion and content) No Status Records Found INFORMATION SOURCE (unrecogn ized section and content) FOR RECORDS PERTAINING TO PATIENTS WHO ARE OR HAVE BEEN ENROLLED IN A CHEMICAL DEPENDENCY/SUBSTANCEABUSE PROGRAM, SOME INFORMATION MAY BE OMITTED. This clinical summary was aggregated from multiple sources. Caution should be exercised in using it in the provision of clinical care. This summary normalizes information from multiple sources, and as a consequence, information in this document may materially change the coding, format and clinical context of patient data. In addition, data may be omitted in some cases. CLINICAL DECISIONS SHOULD BE BASED ON THE PRIMARY CLINICAL RECORDS. [facility]. provides no warranty or guarantee of the accuracy or completeness of information in this document.
== END | disposition home or self-care (01) ==
PROVIDERS: PCP Family Medicine; Referring Provider Family Medicine; Visit Provider Family Medicine
DX: M25.552 Pain in left hip (principal); M79.673 Pain in unspecified foot
CPT/HCPCS: 73502; 73630

== ENCOUNTER → 2023-08-14 | Outpatient (CLI) | payer OTHER, SELFPAY ==
--- NOTE | 2023-08-14 10:15 | MRI_ITS ---
STUDY: MRI LEFT HIP REASON FOR EXAM: Male, 53 years old. Left hip pain, x ray showed OA, need further eval. TECHNIQUE: Standardized fat and water weighted pulse sequences were obtained in all 3 orthogonal planes. COMPARISON: None. FINDINGS: There is a tear of the left anterior acetabular labrum (sagittal PD series 7 images 18-19). Intact left hip joint without significant articular joint space narrowing. Intact acetabulum. Intact femoral head, femoral neck and intratrochanteric region. There is no demonstrated fracture. There is tendinosis and partial tearing of the left gluteus minimus tendon insertion (coronal STIR series 4 image 15; sagittal PD series 7 images 7-8). Normal gluteus medius and iliopsoas tendons and distal insertions. There is no trochanteric, iliopsoas or iliopectineal bursitis. Normal superior and inferior pubic rami. Normal pubic symphysis. Normal ischial tuberosity. Normal origin of the hamstring tendons. Normal visualized iliac wing, sacroiliac joint, and sacral ala. There is degenerative disc disease at L4-5. Normal visualized soft tissue structures of the pelvis. MRI/Lower Ext Joint Only (Routine) IMPRESSION: Tear of the left anterior acetabular labrum. Tendinosis and partial tearing of the left gluteus minimus tendon insertion. Degenerative disc disease at L4-5. Electronically Signed: Cristobal Hermosillo MD at 13:09 EDT ,
== END | disposition home or self-care (01) ==
PROVIDERS: PCP Family Medicine; Referring Provider Family Medicine; Visit Provider Family Medicine
DX: M25.552 Pain in left hip (principal)
CPT/HCPCS: 73721

== ENCOUNTER → 2023-09-27 | Outpatient (CLI) | payer OTHER, SELFPAY ==
[2023-09-27 17:43] LABS: Absolute Lymphocyte Count 2.14 X10^3/uL (0.83-4.51); Absolute Neutrophil Count 4.3 X10^3/uL (2.0-7.7); Basophil# 0.02 X10^3/uL; Basophil% 0.3 % (0-1); Eosinophil# 0.09 X10^3/uL; Eosinophils% 1.3 % (0-5); Hemoglobin 14.6 g/dL (13.0-16.5); Lymphocyte # 2.14 X10^3/ul (0.83-4.51); Lymphocyte % 30.3 % (19-41); Mean Corpuscular Hgb 30.2 pg (27.0-32.0); Mean Platelet Vol. 9.3 fl (6.2-12.0); Monocyte# 0.52 X10^3/uL; Monocyte% 7.4 % (0-10); NRBC Flagged by Analyzer 0 % (0-5); Neutrophil # 4.27 X10^3/uL (2.7-7.7); Neutrophil % 60.4 % (47-70); Platelet Count 277 K/mm3 (150-450); RBC Distribution Width CV 12.3 % (11.6-14.6); Red Blood Count 4.83 M/mm3 (4.6-6.2); White Blood Count 7.1 K/mm3 (4.4-11.0)
[2023-09-27 18:13] LABS: ALB/GLOB Ratio 1.1 RATIO (0.9-2.4); AST(SGOT) 21 U/L (15-37); Alanine Aminotransfer ALT/SGPT 44 U/L (16-61); Alkaline Phosphatase 62 U/L (45-117); Anion Gap 6 (5-15); BUN 19 mg/dL (7-18); BUN/Creat Ratio 20.7 RATIO (10-20); Calcium,Total 9.1 mg/dL (8.5-10.1); Chloride 106 mmol/L (98-107); Creatinine, Serum 0.92 mg/dL (0.70-1.30); EST Glomerular Filtration Rate 91 mL/min (>60); Est Glom Filt Rate - Afr Amer 111 mL/min (>60); Globulin 3.6 g/dL (2.2-4.2); Glucose 97 mg/dL (74-106); Potassium 3.7 mmol/L (3.5-5.1); Protein, Total 7.6 g/dL (6.4-8.2); Sodium Level 139 mmol/L (136-145)
== END | disposition home or self-care (01) ==
LOC: MFPLAB 15:41
PROVIDERS: PCP Family Medicine; Visit Provider Family Medicine
DX: Z01.818 Encounter for other preprocedural examination (principal)
CPT/HCPCS: 36415; 80053; 85025

== ENCOUNTER 2023-10-20 06:06 | Day surgery (SDC) | payer OTHER, SELFPAY ==
[2023-10-20] VITALS (7 sets, daily range): BP systolic 135–149; BP diastolic 83–99; PULSE 58–70; RESP 16; TEMP 36.1–36.8; O2SAT 98–100; BMI 33.3
[2023-10-20] MEDS: Lactated Ringers 1,000 ML 15 ML IV (06:39)
--- NOTE | 2023-10-20 07:28 | DCINST_ITS ---
Discharge Instructions Diet Discharge Diet: Light diet - advance as tolerated Activity Weight Bearing Status: No weight bearing (No weightbearing right foot) Keep extremity elevated above heart level: Right Leg (Keep right foot elevated for at least 50 minutes of every hour) Dressing / Incision Call your doctor if your incision/area has: Continuous Slow Oozing, Sudden Increased Bleeding and Foul Smelling Discharge Call your doctor if you observe: Fever of 101 or Higher, Shortness of breath, Chest pain, Increased palpitations (irregular heartbeat), Calf discomfort and Uncontrolled pain Cleanse incision/area with: Keep Dressing Clean & Dry Follow Up Care Please Follow Up With: William Vicente DPM When: Dr. Vicente will be out of office next week, follow up with Dr. Mark at [facility] in [place] next week, sooner if needed Test Results: Test results from this visit will be discussed in further detail at your follow- up appointment, if applicable. Discharge Plan Admission Attending Provider: William Vicente Primary Care Provider: Hugo New Instructions Print Language: Malay Discharge Orders/Prescriptions Prescriptions: New hydrocodone-acetaminophen 5-300 mg tablet 1 - 2 tab PO Q6H PRN (Reason: pain) 3 Days Qty: 10 0RF No Action Zyrtec 10 MG capsule 10 mg PO DAILY multivitamin with folic acid [Thera] 1 TABLET tablet 1 tab PO DAILY allopurinol 100 mg tablet 100 mg PO DAILY Referrals / Follow Up: Hugo New MD [Primary Care Provider] - Disposition Disposition (needs filled in before D/C Order can be placed): Home, Self Care
--- NOTE | 2023-10-20 07:30 | AMP_PTH ---
PATIENT: ALIDA VILLAGRAN LOC: [facility] [place] U#:[id number] AGE/SX: 53/M ROOM: RE10/20/[address]: Dr. William Vicente DPM : 1970 BED: DIS: 10/20/2023 SPEC #: [id number] RECD: 10/20/23 10:39 STATUS: WILLEM REMary Anne #: [id number] LASHAWN: 10/20/23 07:[address]: William Vicente DEPT: SURGICAL PATHOLOGY RECD BY: Tashia Fabian ENTERED: 10/20/23 10:58 SP TYPE: Amputation OTHR DR: Dr. Hugo New MD Tissues: Toe, NOS Procedures: Decalcification bone/plaque Surgery Specimen Level IV HEADER OPERATION: Right first metatarsal phalangeal joint cheilectomy arthroplasty PRE-OP DIAGNOSIS: Primary osteoarthritis right ankle and foot TISSUE SUBMITTED: Bone from 1st metatarsal phalange right foot MICROSCOPIC DIAGNOSIS Bone from 1st metatarsal phalange, right foot, cheilectomy: Severe degenerative joint disease. / 10/26/2023 MICROSCOPIC DESCRIPTION Slides are reviewed. GROSS DESCRIPTION Received in fixative is one container labeled with the patient's name and designated Bone from 1st metatarsal phalange right foot. The specimen consists of a piece of adipose tissue measuring 2.5 x 2.0 x 0.3cm. Also present in the container are multiple fragments of bone measuring in aggregate 3.0 x 2.5 x 0.6cm. The entire specimen is submitted in three cassettes. 1-soft tissue, 2&3- bone after decalcification. / 10/20/2023 TC: 5 CPT: 25429,80575
--- NOTE | 2023-10-20 07:31 | PCM.OPRPT ---
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 This is overall chronic, and he has pain and activity limitations. This has been treated with conservative/nonsurgical management, and even surgical intervention in the past, but symptoms persists and he continues to have pain and symptoms. He elected to undergo surgery at this time. We discussed the procedure options, and we are planning to proceed with 1st MTPJ cheilectomy arthroplasty. We reviewed the rationale of this as well as the possible benefits, risks, potential complications goals and expectations of each. This was discussed with him in great detail. Typical post op recovery was reviewed with patient, and he expressed understanding and agreement. The consent forms were reviewed with him in detail, and he freely signed them. No guarantees were given nor implied. All of his questions were answered. Patient was medically cleared. Operative Procedure: The patient was brought back into the operating room and was placed on the operating room table in the supine position. The patient was carefully secured to the operating room table with a safety belt around the waist. A time out was performed and the patient was properly identified and the surgical plan was confirmed. The patient received 2 grams of IV Ancef for antibiotic prophylaxis. A well padded pneumatic tourniquet was applied around the right ankle. The patient did receive MAC anesthesia per the anesthesiologist. The skin was cleansed with 70% Isopropyl alcohol, and 10mL of 0.5% Bupivacaine plain was given as a 1st ray block on the right foot. The right foot was scrubbed, prepped, draped in the usual aseptic fashion. Another timeout was performed and the patient was properly identified and the surgical plan was confirmed. The right foot exsanguinated using an Esmarch bandage and the ankle pneumatic tourniquet was inflated to 250mmHg. Right 1st metatarsal phalangeal joint (MTPJ) cheilectomy/arthroplasty: Attention was directed to the 1st MTPJ. There as noted to be degenerative joint disease with limited range of motion present. A linear longitudinal skin incision was made overlying the dorsal medial 1st MTPJ, medial to the Extensor Hallucis Longus tendon overlying the previous incision site using a 15 scalpel blade. Careful dissection was completed down through the subcutaneous tissue layer, down to the 1st MTPJ capsule, which was incised with a 15 scalpel blade. There was significant adhesions and scar tissue to the 1st MTPJ which were released using a 15 blade. There was significant hypertrophy of the 1st MTPJ joint capsule causing impingemnt as well and this was debrided from the 1st MTPJ. The 1st MTPJ capsule was partially reflected exposing the dorsal, lateral, and medial aspect of the 1st metatarsal head and base of the hallux proximal phalanx. There was a loose osseous bone in the lateral aspect of the 1st MTPJ which was removed, also there were recurrent osteophytes around the dorsal, medial, lateral aspect of the 1st metatarsal head as well as the dorsal aspect of the base of the hallux proximal phalanx. There was a recurrent dorsal eminence present to the 1st metatarsal head. The cartilage of the 1st metatarsal head and base of the 1st toe proximal phalanx had overall diffuse global thinning and wearing away of cartilage present. There were significant adhesions of the sesamoid apparatus. The adhesions of the sesamoid apparatus were freed up using a McGlamry elevator. The osteophytes and the eminence were resected using a combination of a powered sagittal saw and a bone cutting rongeur. All resected bone and tissue from the surgical site was sent to pathology for further evaluation. At this time the 1st MTPJ was put through range of motion and it was gliding normally and smoothly, with no impingement or crepitus present, there was 90 degrees of 1st metatarsal phalangeal joint dorsiflexion, confirmed with fluoroscopy. There was no popping or catching present with range of motion. The site was flushed out with copious amounts of normal saline solution. The joint capsule was reapproximated in neutral position using 3-0 Vicryl, the subcutaneous tissue layer was reapproximated using 3-0 Vicryl, the skin was reapproximated using 3-0 Monocryl. Cavilon was painted to the sutured skin edges and steristrips were applied across the sutured skin incision. All vital structure, including all vital neurovascular structures were properly identified and protected as necessary throughout the procedure. The pneumatic tourniquet was deflated (total tourniquet time was 63 minutes), there was immediate return of vascular flow to the foot and all toes. CFT < 2 seconds to all toes, and had normal temperature gradient present with no evidence of ischemia. Hemostasis was achieved. A dressing was applied which consisted of Betadine soaked adaptic, 4x4 gauze, Kerlix and michelle dressing to the foot. The patient tolerated the above operative procedure well at the anesthesia well with no complications. The patient was transported to the recovery room with vital signs stable and in good condition. Post operative orders were placed. Post operative instructions were reviewed with patient today, as well as with his who was with him today. No weightbearing right foot, keep right foot elevated for at least 50 minutes of every hour, keep dressing clean, dry and intact to foot. Prescription for Vicodin 5/300mg tabs was prescribed: 1-2 tabs PO q 6 hours PRN pain for pain control. Reviewed mechanical DVT prophylaxis. He was dispensed a surgical shoe for the right foot. Post operative xrays were ordered of the right foot in the recovery room - these were reviewed and noted to be s/p 1st MTPJ cheilectomy arthroplasty without complication. Grafts/Implants Used: None Complications None
[2023-10-20] MEDS: Cefazolin 2 GM in 0.9% Normal Saline (100mL Bag) 100 ML IV (07:40)
--- NOTE | 2023-10-20 07:44 | RAD_ITS ---
STUDY: X-RAY - RIGHT FOOT CLINICAL: Male, 53 years old. PAIN TECHNIQUE: 2 view(s) of the foot. COMPARISON: None. FINDINGS: 37 seconds of fluoroscopy of the right foot was utilized operating during surgery and 7 images are submitted for interpretation. . RAD/Foot 2 Views IMPRESSION: Fluoroscopy during foot surgery. Electronically Signed: Toni Beach MD at 20:57 EDT ,
[2023-10-20] MEDS: Bupivacaine Mpf 0.5% 30 ML VIAL (07:56)
--- NOTE | 2023-10-20 09:23 | RAD_ITS ---
EXAM: XR RIGHT FOOT COMPLETE, 3 OR MORE VIEWS CLINICAL INDICATION: post op TECHNIQUE: Frontal, lateral and oblique views of the right foot. COMPARISON: No relevant prior studies available. FINDINGS: BONES/JOINTS: Radiolucency along the first MTP joint related to recent surgery. Plantar calcaneal spur noted. No acute fracture or subluxation. Deformity of the distal aspect of the first metatarsal may be related to old fracture. SOFT TISSUES: Normal. No soft tissue swelling or gas. No radiopaque foreign body. RAD/Foot min 3 Views IMPRESSION: Postoperative changes of the first MTP joint. Chronic appearing deformity of the first metatarsal. Electronically Signed: Liam Griffith MD at 16:05 EDT ,
== END 2023-10-20 10:18 | disposition home or self-care (01) ==
LOC: SDC 06:06 → AC 06:08
PROVIDERS: PCP Family Medicine; Referring Provider Podiatrist; Visit Provider Podiatrist
PROC: (CPT 28289; principal; 2023-10-20 07:15)
DX: M10.9 Gout, unspecified (principal); M79.674 Pain in right toe(s)
CPT/HCPCS: 28289; 01480; 73620; 73630; 76000; 88305; 88311; J7120

== ENCOUNTER 2024-01-03 11:00 | Outpatient (RCR) | payer OTHER, SELFPAY ==
--- NOTE | 2023-10-16 13:55 | HP.PTEVAL ---
Patient's Visit Information Visit Information Visit Information: ALIDA VILLAGRAN is a 53 year old M referred to Physical Therapy by Dr. Miguel Flores MD with a diagnosis of Labral Tear MADELEINE. Date of Evaluation: 10/16/23 Physical Therapist: Ana Bernard DPT Visit Plan Frequency: 1x/Week Duration: 1 Week Plan: Hold until the first week of November as he is having foot surgery and will be NWB. Subjective Subjective: Patient reports that he has a torn labrum in his left hip. It has been bothering him for over a year- started like an ache- insidious onset- stiffness comes and goes then one day he moved and it felt like a sharp jabbing shooting pains. Then fast forward to this summer its more and more he gets a shooting pain. So went to Dr. New had an MRI- they know they need to do surgery but he has surgery on his left big toe on Monday by Dr. Vicente- he will be on crutches for 2 weeks and walking boot for 4 weeks on the right. Plans to have LABRAL SURGERY on the LEFT- windows for surgery will be end of middle December or wait until Middle of February. MD wants him to do therapy until then. He reports that he has stiffness in his hip- if he gets up its stiff for the first 20 steps and then it frees up. Feels like the pain is staying the same- not better or worse. Worse: 3/10 Agg: walking, turning, stop. Gives him a sudden jab and then its over. Eases: pressure on it, heat Best: /10. When its at rest it feels like a knot in the muscle. Pain is located in the anterior hip and out and around- no pain that radiates down the leg or into the back. No N/T down the leg. 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 Will be doing all office work for the toe- he works from home. PMHx/Meds: see chart Objective Objective: Posture: forward head, rounded shoulder can correct with verbal cues Gait: slight trunk lean to the right to off load left hip- decreased stance on left LE HR/TR: able without UE A SLS: 10 sec with increased sway and muscle activation ROM: WFL in all planes Strength: Core: fair minus Knee Extension: Left: 72 Right: 79 Flexion: Left: 29 Right: 33 IR: Left: 50 Right: 44 ER: Left: 35 Right: 55. Flexion: Left: 10 Right: 30 Abd: Left: 26 Right: 35 Extn: Right: 47 Left: 37 Flex: HS: severe, Gastroc: moderate Balance/Special Test Scores Lower Extremity Functional Score: 65 Goals Goal 1:: Patient will report participation in home exercise program activities a minimum of 5 days per week, as adjunct to skilled physical therapy intervention in preparation for independent home management upon discharge. Goal Time Frame: 4-6 Weeks Goal 2:: Patient will ambulate >150 feet with normalized gait pattern Goal Time Frame: 4-6 Weeks Goal 3:: Patient will SLS for 30 sec without LOB Goal Time Frame: 4-6 Weeks Goal 4:: Patient will improve strength to equal side to side Goal Time Frame: 4-6 Weeks Goal 5:: Patient will report 80% improvement Goal Time Frame: 4-6 Weeks Rehabilitation Potential Physical Therapy Diagnosis: Patient presents with hypomobility- he has decreased core and LE strength/stabilization, proprioception, flex and muscular endurance leading to abnormal gait and increased pain with ADL's. Rehabilitation Potential: Fair Anticipated Interventions Text: Thank you for the opportunity to evaluate your patient. For Medicare and Medicare HMO plans, please review the plan of care and approve it. It will need to be FAXED BACK to us at [phone] for Medicare purposes. For Medicare only, by signing this I certify the plan of care. Please let me know if there are questions or concerns regarding this plan of care. Physician Signature: Date:
--- NOTE | 2024-01-03 12:00 | HP.PT.NRP ---
Patient Information Patient Information: ALIDA VILLAGRAN was seen in my office for initial evaluation on 10/16/23. The following Plan of Care was established for this patient: POC Established Initial Frequency: 1x/Week Initial Duration: 1 Week Last Seen Last Seen: This patient was last seen in our office . Pertinent comments regarding their Physical therapy will appear below: Patient is having surgery on his left hip- appropriate to be d/c at this time and continue HEP At this point I will be discontinuing this patient from physical therapy. I would be happy to see this patient again in the future if found appropriate by the physician. Thank you! Ana Bernard DPT Balance/Gait/Functional tests Balance/Special Test Scores Lower Extremity Functional Score: 60
== END 2024-01-03 19:00 | disposition home or self-care (01) ==
LOC: PT 11:00
PROVIDERS: PCP Family Medicine; Visit Provider Orthopaedic Surgery Sports Medicine
DX: M25.852 Other specified joint disorders, left hip (principal)
CPT/HCPCS: 97110; 97162; 97530

== ENCOUNTER → 2024-01-23 | Outpatient (CLI) | payer OTHER, SELFPAY ==
--- NOTE | 2024-01-23 09:06 | RAD_ITS ---
STUDY: X-RAY - LEFT ANKLE REASON FOR EXAM: Male, 53 years old. Left ankle pain following twisting injury. TECHNIQUE: 3 view(s) of the ankle. COMPARISON: None. FINDINGS: Normal visualized distal tibia and fibula. Normal medial and lateral malleoli. Normal tibiotalar articulation and ankle mortise. Plantar spur. The visualized subtalar, talonavicular, calcaneocuboid and tarsal articulations are normal. Lateral soft tissue swelling. RAD/Ankle min 3 Views IMPRESSION: Lateral soft tissue swelling. Plantar spur. Electronically Signed: Jossue Encarnacion MD at 10:07 EDT ,
== END | disposition home or self-care (01) ==
LOC: MTRAD 09:05
PROVIDERS: PCP Family Medicine; Referring Provider Nurse Practitioner Family; Visit Provider Nurse Practitioner Family
DX: M25.572 Pain in left ankle and joints of left foot (principal)
CPT/HCPCS: 73610

== ENCOUNTER → 2024-02-20 | Outpatient (CLI) | payer OTHER, SELFPAY ==
[2024-02-20 15:50] LABS: Anion Gap 7 (5-15); BUN 16 mg/dL (7-18); BUN/Creat Ratio 16.5 RATIO (10-20); Calcium,Total 9.6 mg/dL (8.5-10.1); Chloride 107 mmol/L (98-107); Creatinine, Serum 0.97 mg/dL (0.70-1.30); EST Glomerular Filtration Rate 85 mL/min (>60); Est Glom Filt Rate - Afr Amer 103 mL/min (>60); Glucose 103 mg/dL (74-106); PSA,Total - Annual Screen 1.88 ng/mL (0.00-4.00); Potassium 4.2 mmol/L (3.5-5.1); Sodium Level 140 mmol/L (136-145); Uric Acid 6.5 mg/dL (3.5-7.2)
== END | disposition home or self-care (01) ==
LOC: MFPLAB 12:10
PROVIDERS: PCP Family Medicine; Visit Provider Family Medicine
DX: Z12.5 Encounter for screening for malignant neoplasm of prostate (principal); Z13.1 Encounter for screening for diabetes mellitus; M10.9 Gout, unspecified
CPT/HCPCS: 36415; 80048; 84153; 84550; G0103

== ENCOUNTER → 2024-04-24 | Outpatient (CLI) | payer OTHER, SELFPAY ==
[2024-04-24 17:28] LABS: Absolute Lymphocyte Count 2.18 X10^3/uL (0.83-4.51); Absolute Neutrophil Count 3.8 X10^3/uL (2.0-7.7); Basophil# 0.04 X10^3/uL; Basophil% 0.6 % (0-1); Eosinophil# 0.08 X10^3/uL; Eosinophils% 1.2 % (0-5); Hematocrit 40.7 % (40-54); Hemoglobin 13.8 g/dL (13.0-16.5); Lymphocyte # 2.18 X10^3/ul (0.83-4.51); Lymphocyte % 33.1 % (19-41); Mean Corp Hgb Conc 33.9 g/dL (32-36); Mean Corpuscular Hgb 30.1 pg (27.0-32.0); Mean Corpuscular Volume 88.7 fL (80-94); Mean Platelet Vol. 9.1 fl (6.2-12.0); Monocyte# 0.47 X10^3/uL; Monocyte% 7.1 % (0-10); NRBC Flagged by Analyzer 0 % (0-5); Neutrophil # 3.79 X10^3/uL (2.7-7.7); Neutrophil % 57.7 % (47-70); Platelet Count 277 K/mm3 (150-450); RBC Distribution Width CV 12.4 % (11.6-14.6); RBC Distribution Width SD 40.7 fl (35.1-43.9); Red Blood Count 4.59 M/mm3 (4.6-6.2); White Blood Count 6.6 K/mm3 (4.4-11.0)
[2024-04-24 17:57] LABS: ALB/GLOB Ratio 1.2 RATIO (0.9-2.4); AST(SGOT) 21 U/L (15-37); Alanine Aminotransfer ALT/SGPT 45 U/L (16-61); Albumin, Serum 3.9 g/dL (3.2-5.0); Alkaline Phosphatase 61 U/L (45-117); Anion Gap 6 (5-15); BUN 17 mg/dL (7-18); BUN/Creat Ratio 10.7 RATIO (10-20); Calcium,Total 9.2 mg/dL (8.5-10.1); Chloride 107 mmol/L (98-107); Creatinine, Serum 1.59 mg/dL (0.70-1.30); EST Glomerular Filtration Rate 48 mL/min (>60); Est Glom Filt Rate - Afr Amer 58 mL/min (>60); Globulin 3.3 g/dL (2.2-4.2); Glucose 92 mg/dL (74-106); Potassium 3.8 mmol/L (3.5-5.1); Protein, Total 7.2 g/dL (6.4-8.2); Sodium Level 140 mmol/L (136-145)
== END | disposition home or self-care (01) ==
LOC: MFPLAB 16:30
PROVIDERS: PCP Family Medicine; Visit Provider Nurse Practitioner Family
DX: Z01.818 Encounter for other preprocedural examination (principal)
CPT/HCPCS: 36415; 80053; 85025

== ENCOUNTER → 2024-08-29 | Outpatient (CLI) | payer OTHER, SELFPAY ==
[2024-08-29 19:27] LABS: ALB/GLOB Ratio 1.9 RATIO (0.9-2.4); AST(SGOT) 28 U/L (<=37); Alanine Aminotransfer ALT/SGPT 50 U/L (<=46); Albumin, Serum 4.3 g/dL (3.5-5.0); Alkaline Phosphatase 67 U/L (40-129); Anion Gap 14 (5-15); BUN 13 mg/dL (4-19); BUN/Creat Ratio 15.1 RATIO (10-20); Calcium,Total 9.4 mg/dL (7.6-11.0); Carbon Dioxide 21.5 mmol/L (21.0-32.0); Chloride 105 mmol/L (98-108); Creatinine, Serum 0.88 mg/dL (0.70-1.20); EST Glomerular Filtration Rate 102 (>60); Globulin 2.2 g/dL (2.2-4.2); Glucose 95 mg/dL (70-99); Potassium 4.3 mmol/L (3.3-5.1); Protein, Total 6.5 g/dL (5.9-8.4); Sodium Level 141 mmol/L (133-145); Total Bilirubin 0.36 mg/dL (0.00-1.30)
[2024-08-29 20:17] LABS: Cholesterol 198 mg/dL (<=200); High Density Lipoprotein 50 mg/dL; Low Density Lipoprotein Calc. 121 mg/dL; Triglycerides 134 mg/dL; Uric Acid 6.7 mg/dL (3.5-7.2); Very Low Density Lipoprotein 27 mg/dL (5-40); cholesterol:hdl ratio screen 3.95
== END | disposition home or self-care (01) ==
LOC: MTLAB 11:41
PROVIDERS: PCP Family Medicine; Referring Provider Family Medicine; Visit Provider Family Medicine
DX: M10.9 Gout, unspecified (principal); R73.01 Impaired fasting glucose
CPT/HCPCS: 36415; 80053; 80061; 84550

== ENCOUNTER 2024-12-20 10:00 | Outpatient (RCR) | payer OTHER, SELFPAY ==
--- NOTE | 2024-05-22 12:36 | HP.PTEVAL ---
Patient's Visit Information Visit Information Visit Information: ALIDA VILLAGRAN is a 54 year old M referred to Physical Therapy by Dr. Miguel Flores MD with a diagnosis of OTHER CARTLIDGE DISORDER LEFT HIP. Date of Evaluation: 05/22/24 Physical Therapist: Alida Wagner, PT, Cert MDT, OCS Visit Plan Frequency: 2x /Week Duration: Indefinite Plan: s/p labral repair acetabuloplasty ,chondroplasty microfracture ,femoroplasty and capsular closure on 05/08 STRICT NWB LLE 6 WEEKS( another 4 weeks) See Protocol for labral repair and capsular closure /repair but follow NWB LLE 6 weeks PT interventions ROM/flexibility ,strengthening ex's per protocol ,core strengthening , gait training/balance training ,WB strengthening after 6 weeks of NWB ,manual therapy Subjective Subjective: This 54 y/o male presents to physical therapy with left hip scope with with labral repair acetabuloplasty ,chondroplasty microfracture ,femoroplasty and capsular closure on 05/[address] Flores at [facility] and went ome DOS with crutches NWB left hip. Patient to has had pain in hip right hip 2 years. Patient had MRI showed labral tear.Patient had CPM 6 hrs 2 weeks Patient had PT prior to surgery. Patient has some pulling in groin. Denies paresthesia/tingling . Patient sleeping good. Patient stopped medication initially oxycodone. Patient has 1 story home with 3 steps with rails. Patient has walk in shower with chair . RTD Jun 18 . Patient condition affects QOL and function and job demands . Patient goals to get make to normal. 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 [employer] Pain Left Hip: Pain Intensity (Out of 10): 1 Pain Intensity Range: 10 Objective Objective: POSTURE: mild forward posture GAIT: ambulates NWB LLE with crutches NEURO: denies paresthesia/tingling , INCISION: well approximate PROM: hip flexion 95 degrees ,abduction 25 degrees ,IR 0 ,ER 25 degrees MMT:( peak force) left hip 0 ,quads/hams/ankle 4/5 Balance/Special Test Scores Lower Extremity Functional Score: 9 Goals Goal 1:: Patient to be I with HEP for hip Goal Time Frame: 12-16 Weeks Goal 2:: Patient to ambulate with normal niya Goal Time Frame: 12-16 Weeks Goal 3:: Patient to improve peak force hip 20-25# to improve function Goal Time Frame: 12-16 Weeks Goal 4:: Patient to improve LFES score by 5 points to improve QOL and function Goal Time Frame: 12-16 Weeks Goal 5:: Patient to AROM of hip WFL for gait Goal Time Frame: 12-16 Weeks Goal 6:: Patient to demonstrate 75% improvement with improved function. Goal Time Frame: 12-16 Weeks Rehabilitation Potential Physical Therapy Diagnosis: This patient underwent s/p labral repair acetabuloplasty ,chondroplasty microfracture ,femoroplasty and capsular closure on 05/08 with NWB LLE 6 WEEKS with another 4weeks ,decrease ROM ,weakness ,gait and balance thus benefit from skilled PT Rehabilitation Potential: Good Anticipated Interventions Patient/Client Instruction: Educate patient on: Condition and Plan of Care For the Purpose of:: To decrease pain, To increase ROM, To improve muscle performance and motor function, To improve ability to perform ADL's, To increase tolerance to activity/condition/position, To improve performance and independence with ADL's, To improve ability of physical actions for home/community/work/leisure, To improve health of tissue, To decrease soft tissue restriction, To increase flexibility/ROM, To reduce risk of recurrence and To improve tolerance to ADL's Therapeutic Exercise to Include: Strength training, Endurance training, Balance training, Flexibilty training, Passive ROM, Active ROM and Dynamic Lumbar Stabilization Comment: hip strengthening see protocatl For the Purpose of:: To decrease pain, To increase ROM, To improve muscle performance and motor function, To improve ability to perform ADL's, To increase tolerance to activity/condition/position, To improve ability of physical actions for home/community/work/leisure, To improve health of tissue, To decrease soft tissue restriction, To increase flexibility/ROM, To improve endurance and To improve balance Manual Therapy Techniques to Include: Passive ROM For the Purpose of:: To decrease pain, To increase ROM, To improve nutrient delivery to tissue and To increase oxygenation perfusion Text: Thank you for the opportunity to evaluate your patient. For Medicare and Medicare HMO plans, please review the plan of care and approve it. It will need to be FAXED BACK to us at [phone] for Medicare purposes. For Medicare only, by signing this I certify the plan of care. Please let me know if there are questions or concerns regarding this plan of care. Physician Signature: Date:
--- NOTE | 2024-08-05 17:04 | HP.PTEVAL2 ---
Patient's Visit Information Visit Information Visit Information: ALIDA VILLAGRAN is a 54 year old M referred to Physical Therapy by Dr. Miguel Flores MD with a diagnosis of 1st MTPJ OA ,sesamoiditis , neuritis /neuroma ,. Date of Evaluation: 08/05/24 Physical Therapist: Alida Wagner, PT, Cert MDT, OCS Visit Plan Frequency: 2x /Week Duration: 4 Weeks Plan: PT INTERVENTIONS MOBILIZATION/STM 1ST MTPJ,US ,ICE ,CP ,ROM AND STRENGTHENING EX'S 1ST MTPJ Subjective Subjective: This 54 y/o male presents to physical therapy with 1st MTPJ OA ,sesamoiditis , neuritis /neuroma. Patient great toe 1st metatarsal phalangeal joint (MTPJ pain with h/o surgery 1st st metatarsal phalangeal joint on 2019 and 2023 1st metatarsophalangeal joint cheilectomy arthroplasty right. Patient has orthotics and foot plate . Patient pain never got better. Dr has pain cream Seen Dr Delgado recommended PT ,tried injection and epac. Dt gave patient option joint replacement or fusion of joint. Patient walking standing on feet. Unable to walk on hard surfaces uses slippers. Denies paresthesia/tingling -. Patient pain doesn't affects sleep. No Pt after toe surgery. Pain located at plantar great toe. Described as sharp ache soreness . Patient condition affects QOL and function /gait. Patient goals to decrease pain VOCATION: [employer] SOCIAL: Pain Right Foot: Intensity: 4 Pain Intensity Range: 10 Comment: graet toe ,increase 8-9/10 when walking Objective Objective: POSTURE: pes cavus GAIT: reciprocal pattern NEURO: denies paresthesia/tingling , PALAPTION: Plantar aspect of MPTJ AROM: great toe extension 10 degrees ,flexion 25 degrees MMT: great toe 3+/5 flexion pain ,toe extension 4-/5 ,ankle 4/5 stanilzers G-S: WFL Goals Goal 1:: Patient to be I with HEP 1st toe Goal Time Frame: 4-6 Weeks Goal 2:: Patient to demonstrate 50% improvement with less pain and improved function with walking/standing Goal Time Frame: 4-6 Weeks Goal 3:: Patient to improve AROM great toe by 5 degrees to improve gait Goal Time Frame: 4-6 Weeks Goal 4:: Patient to improve MMT w/o pain 1st MTPJ Goal Time Frame: 4-6 Weeks Rehabilitation Potential Physical Therapy Diagnosis: This patient has great toe 1st MTPJ with pain with gait /standing ,ROM and pain with flexors MMT along with tenderness thus benefit from skilled PT Rehabilitation Potential: Good Anticipated Interventions Patient/Client Instruction: Educate patient on: Condition and Plan of Care For the Purpose of:: To decrease pain, To improve nutrient delivery to tissue, To increase oxygenation perfusion, To improve muscle performance and motor function, To increase tolerance to activity/condition/position, To improve ability of physical actions for home/community/work/leisure, To improve gait and locomotor functions, To improve health of tissue and To increase flexibility/ROM Therapeutic Exercise to Include: Strength training, Balance training, Flexibilty training, Passive ROM and Active ROM For the Purpose of:: To decrease pain, To decrease swelling/inflammation, To increase ROM, To improve nutrient delivery to tissue, To increase oxygenation perfusion, To improve muscle performance and motor function, To increase tolerance to activity/condition/position, To improve ability of physical actions for home/community/work/leisure, To improve health of tissue, To decrease soft tissue restriction, To increase flexibility/ROM and To improve endurance Manual Therapy Techniques to Include: Mobilization and Passive ROM Comment: MTPJ For the Purpose of:: To decrease pain, To increase ROM, To improve nutrient delivery to tissue, To increase oxygenation perfusion, To improve health of tissue and To decrease soft tissue restriction Cryotherapy (ice pack, ice massage): Yes Thermo therapy (hot pack): Yes Ultrasound (thermal/non thermal): Yes For the Purpose of:: To decrease pain, To increase ROM, To improve nutrient delivery to tissue, To increase oxygenation perfusion, To improve health of tissue and To decrease soft tissue restriction text: Thank you for the opportunity to evaluate your patient. For Medicare and Medicare HMO plans, please review the plan of care and approve it. It will need to be FAXED BACK to us at [phone] for Medicare purposes. For Medicare only, by signing this I certify the plan of care. Please let me know if there are questions or concerns regarding this plan of care. Physician Signature: Date:
--- NOTE | 2024-10-04 09:52 | HP.PTDCSUM ---
Discharge Summary D/C summary: It has been my pleasure to treat ALIDA VILLAGRAN referred by Dr. Miguel Flores MD, with the diagnosis of OTHER CARTLIDGE DISORDER LEFT HIP for a total of 36 visit(s). Discharge Date: 10/04/24 Please see the following information for a summary of their discharge status. Subjective Subjective: Stiffness in hip not really pain Pain Left Hip: Pain Intensity (Out of 10): 0 back pain: Pain Intensity (Out of 10): 0 Overall Improvement % Improvement: 75 Objective Objective/Function: NEURO: denies paresthesia/tingling PALPATION: unremarkable PROM: hip flexion 115 degrees ,IR 25 degrees,ER 45 degrees ,hip abd 45 GAIT: reciprocal pattern MMT:quads 55.8 ,hamstrings 46.1 ,hip flexion 47.1 ,hip abd 38.6 Good squatting Goals Goal 1:: Patient to be I with HEP for hip Goal Progress: Goal Met Goal 2:: Patient to ambulate with normal niya Goal Progress: Goal Met Goal 3:: Patient to improve peak force hip 10-15# to improve function( new gaols) Goal Progress: Goal Met Goal 4:: Patient to improve LFES score by 5 points to improve QOL and function( new goal) Goal Progress: Goal Met Goal 5:: Patient to AROM of hip WFL for gait Goal Progress: Goal Met Goal 6:: Patient to demonstrate 75% improvement with improved function. Goal Progress: Goal Met Plan Plan: D/C TO HEP D/C Information Discharge Comments: HEP d/c sentence: If there are questions or concerns regarding this patient's physical therapy, please feel free to call me at [phone]. Thank you for the referral of this patient. Sincerely, Alida Wagner, PT, Cert MDT, OCS Balance/Gait/Functional tests Balance/Special Test Scores Lower Extremity Functional Score: 59 Improvement % Improvement: 75
== END 2024-12-20 19:00 | disposition home or self-care (01) ==
LOC: PT 10:00
PROVIDERS: PCP Family Medicine; Referring Provider Orthopaedic Surgery Sports Medicine; Visit Provider Orthopaedic Surgery Sports Medicine
DX: M24.152 Other articular cartilage disorders, left hip (principal)
CPT/HCPCS: 97035; 97110; 97140; 97162; 97530